=== PATIENT | female | born 1990 ===

== ENCOUNTER 2020-03-03 07:12 | Emergency (ER) | payer SELFPAY ==
[~2020-03-03] VITALS: Ht 165.1 cm; Wt 96.9 kg
--- NOTE | 2020-03-03 07:40 | ED GU-Female ---
General Chief Complaint: RECAPPER Stated Complaint: VAGINAL BLEEDING Nursing Triage Note: AMB TO ROOM [facility] TO ROOM TO COAL BAGGER WHO REPORTS SHE HAS HAD VAG BLEEDNG FOR 6 MONTHS TO CONCERND PASSED CLOTS WHEN SHE GOT UP Nursing Sepsis Screen: No Definite Risk Source: patient Exam Limitations: no limitations, language barrier History of Present Illness Date Seen by Provider: Mar 03, 2020 Time Seen by Provider: 07:22 Initial Comments Here with report of vaginal bleeding that has been irregular and more persistent over the last 6 months. Here today with her because she woke up this morning she noted several bigger clots after she got up. This concerned her and so she came for evaluation. Has some left lower quadrant abdominal pain. Otherwise denies other symptoms. Patient speaks limited Cameroonian but speaks Cameroonian well and is assisting. Timing/Duration: this morning Severity/Quality: mild, moderate Location: LLQ, vaginal Radiation: none Activities at Onset: sleep Sexual Talpa History: less than 2 months ago, single partner Associated Symptoms: abdominal pain; No dysuria, No fever/chills, No lower back pain, No nausea/vomiting Allergies and Home Medications Allergies Coded Allergies: No Known Drug Allergies (Unverified , 03/03/20) Home Medications No Active Prescriptions or Reported Meds Patient Home Medication List Home Medication List Reviewed: Yes Review of Systems Review of Systems Constitutional: no symptoms reported Respiratory: no symptoms reported Cardiovascular: no symptoms reported Gastrointestinal: see HPI Genitourinary: see HPI; denies dysuria, denies pain Skin: no symptoms reported Past Ovtpshv-Okzbyj-Dfzass Hx Past Med/Social Hx: Reviewed Nursing Past Med/Soc Hx Patient Social History Alcohol Use: Denies Use Recreational Drug Use: No Smoking Status: Never a Smoker Recent Foreign Travel: No Contact w/Someone Who Travel: No Recent Infectious Disease Expo: No Past Medical History Surgeries: Yes Section Respiratory: No Cardiac: No Neurological: No Genitourinary: No Gastrointestinal: No Musculoskeletal: No Endocrine: No HEENT: No Cancer: No Psychosocial: No Integumentary: No Family Medical History Reviewed Nursing Family Hx Physical Exam Vital Signs Vital Signs - First Documented 03/03/20 07:14 Temp 36.8 Pulse 89 Resp 18 B/P (MAP) 111/83 (92) Pulse Ox 100 O2 Delivery Room Air Capillary Refill : Less Than 3 Seconds Height, Weight, BMI Height: '" Weight: lbs. oz. kg; 35.00 BMI Method: General Appearance: WD/WN, no apparent distress HEENT: PERRL/EOMI, pharynx normal Neck: full range of motion, supple Cardiovascular: regular rate, rhythm, no murmur Respiratory: lungs clear, normal breath sounds Gastrointestinal: soft; No guarding, No rebound; tenderness (mild left lower quadrant) Back: normal inspection, no CVA tenderness, no vertebral tenderness Extremities: non-tender, normal inspection Neurologic/Psychiatric: no motor/sensory deficits, alert, oriented x 3 Skin: normal color, warm/dry Progress/Results/Core Measures Suspected Sepsis Recent Fever Within 48 Hours: No Infection Criteria Present: None New/Unexplained Altered Menta: No Sepsis Screen: No Definite Risk SIRS Temperature: Pulse: 89 Respiratory Rate: 18 Laboratory Tests 03/03/20 07:36: White Blood Count 14.6H Blood Pressure 111 /83 Mean: 92 Laboratory Tests 03/03/20 07:36: Creatinine 0.65, Platelet Count 647H, Total Bilirubin 0.2 Results/Orders Lab Results Laboratory Tests Test 03/03/20 07:36 03/03/20 08:30 Range/Units White Blood Count 14.6 H 4.3-11.0 10^3/uL Red Blood Count 4.29 L 4.35-5.85 10^6/uL Hemoglobin 7.9 L 11.5-16.0 G/DL Hematocrit 28 L 35-52 % Mean Corpuscular Volume 66 L 80-99 FL Mean Corpuscular Hemoglobin 18 L 25-34 PG Mean Corpuscular Hemoglobin Concent 28 L 32-36 G/DL Red Cell Distribution Width 19.5 H 10.0-14.5 % Platelet Count 647 H 130-400 10^3/uL Mean Platelet Volume 11.2 H 7.4-10.4 FL Neutrophils (%) (Auto) 51 42-75 % Lymphocytes (%) (Auto) 31 12-44 % Monocytes (%) (Auto) 7 0-12 % Eosinophils (%) (Auto) 11 H 0-10 % Basophils (%) (Auto) 1 0-10 % Neutrophils # (Auto) 7.4 1.8-7.8 X 10^3 Lymphocytes # (Auto) 4.5 H 1.0-4.0 X 10^3 Monocytes # (Auto) 1.0 0.0-1.0 X 10^3 Eosinophils # (Auto) 1.5 H 0.0-0.3 10^3/uL Basophils # (Auto) 0.1 0.0-0.1 10^3/uL Neutrophils % (Manual) 57 % Lymphocytes % (Manual) 31 % Monocytes % (Manual) 4 % Eosinophils % (Manual) 7 % Basophils % (Manual) 0 % Band Neutrophils 1 % Polychromasia SLIGHT Anisocytosis SLIGHT Microcytosis MODERATE Sodium Level 137 135-145 MMOL/L Potassium Level 4.1 3.6-5.0 MMOL/L Chloride Level 108 H 98-107 MMOL/L Carbon Dioxide Level 20 L 21-32 MMOL/L Anion Gap 9 5-14 MMOL/L Blood Urea Nitrogen 13 7-18 MG/DL Creatinine 0.65 0.60-1.30 MG/DL Estimat Glomerular Filtration Rate > 60 BUN/Creatinine Ratio 20 Glucose Level 103 70-105 MG/DL Calcium Level 8.2 L 8.5-10.1 MG/DL Corrected Calcium 8.5 8.5-10.1 MG/DL Total Bilirubin 0.2 0.1-1.0 MG/DL Aspartate Amino Transf (AST/SGOT) 15 5-34 U/L Alanine Aminotransferase (ALT/SGPT) 14 0-55 U/L Alkaline Phosphatase 84 40-136 U/L Total Protein 7.2 6.4-8.2 GM/DL Albumin 3.6 3.2-4.5 GM/DL Serum Test, Qualitative NEGATIVE NEGATIVE Urine Color YELLOW Urine Clarity SL CLOUDY Urine pH 6.0 5-9 Urine Specific [place] 1.020 1.016-1.022 Urine Protein NEGATIVE NEGATIVE Urine Glucose (UA) NEGATIVE NEGATIVE Urine Ketones NEGATIVE NEGATIVE Urine Nitrite NEGATIVE NEGATIVE Urine Bilirubin NEGATIVE NEGATIVE Urine Urobilinogen 0.2 < = 1.0 MG/DL Urine Leukocyte Esterase 3+ H NEGATIVE Urine RBC (Auto) 3+ H NEGATIVE Urine RBC 2-5 H /HPF Urine WBC >100 H /HPF Urine Squamous Epithelial Cells RARE /HPF Urine Crystals NONE /LPF Urine Bacteria MODERATE H /HPF Urine Casts NONE /LPF Urine Mucus NEGATIVE /LPF Urine Culture Indicated YES My Orders Orders - DIONE MORRISON MD Cbc With Automated Diff (03/03/20 07:31) Comprehensive Metabolic Panel (03/03/20 07:31) Hcg,Qualitative Serum (03/03/20 07:31) Ua Culture If Indicated (03/03/20 07:31) Manual Differential (03/03/20 07:36) Urine Culture (03/03/20 08:30) Us Non Ob Pelvis Comp/Transvag (03/03/20 07:31) Vital Signs/I&O 03/03/20 07:14 Temp 36.8 Pulse 89 Resp 18 B/P (MAP) 111/83 (92) Pulse Ox 100 O2 Delivery Room Air Capillary Refill : Less Than 3 Seconds Blood Pressure Mean: 92 Progress Note : Progress Note Seen and evaluated. Labs, UA and pelvic ultrasound ordered. Monitor patient. 0930: Ultrasound complete. Labs reviewed. I discussed all these findings with the patient and her . We will initiate treatment for urinary tract infection and they were strongly encouraged to initiate vitamin with iron and to seek local follow-up. They are familiar with [facility] and will seek follow-up there. Discharged home with return precautions. Patient and family verbalize understanding instructions and agreement with plan. Diagnostic Imaging Diagonstic Imaging: Ultrasound Plain Films/CT/US/NM/MRI: pelvis Comments NAME: SHAHRIAR FARLEY [facility] REC#: [id number] PT STATUS: REG ER : 1990 PHYSICIAN: DIONE MORRISON MD ADMIT DATE: 03/03/20/ER Draft Date of Exam:03/03/20 US NON OB PELVIS COMP/TRANSVAG EXAMINATION: Ultrasound pelvis. DATE: March 03, 2020. INDICATION: 29-year-old female, left-sided pelvic pain. COMPARISON: None. TECHNIQUE: A sonogram of the pelvis was performed utilizing transabdominal and endovaginal approaches assessing burns-scale appearance, spectral Doppler analysis, and color Doppler flow. FINDINGS: The uterus measures 8.1 x 3.4 x 4.9 cm. There is a probable nabothian cyst measuring 4 mm in size. The endometrium measures 0.7 cm in diameter. The right ovary measures 2.9 cm x 2.1 cm x 2.3 cm. The left ovary measures 2.6 cm x 1.9 cm x 2.1 cm. No adnexal lesion is seen. There is blood flow to both ovaries. No free pelvic fluid is demonstrated. IMPRESSION: 1. There is a 4 mm probable nabothian cyst. 2. Additional ultrasound evaluation of the female pelvis is unremarkable. Dictated on workstation # [id number] Dict: 03/03/20912 Trans: 03/03/20916 [id number] Interpreted by: SIOBHAN BIRMINGHAM MD Electronically signed by: Departure Impression Primary Impression: Urinary tract infection Qualified Codes: N30.01 - Acute cystitis with hematuria Additional Impression: Dysfunctional uterine bleeding Disposition: HOME, SELF-CARE Condition: Improved Departure-Patient Inst. Decision time for Depature: 09:31 Referrals: NO,LOCAL PHYSICIAN (PCP) Primary Care Physician SANDEEP OLIVER BETHANY N MD GAULT, HOLLY R MD [facility] [place] Patient Instructions: Anemia Caused by Low Iron, Adult (DC), Bleeding Between Periods, Heavy Periods, Urinary Tract Infection, Adult (DC) Add. Discharge Instructions: All discharge instructions reviewed with patient and/or family. Voiced understanding. Take antibiotics as directed. You should start a multivitamin with iron ( vitamin with iron will be fine). It is very important that you follow- up with your doctor or doctor of your choosing to continue to evaluate your abnormal periods and bleeding. Your hemoglobin is currently 7.9. Return for worse pain, increased bleeding, problems going to the bathroom, weakness, breathing problems or other concerns as needed. Scripts Cephalexin (Cephalexin) 500 Mg Tablet 500 MG PO BID, #14 TAB 0 Refills Prov: DIONE MORRISON MD 03/03/20 DIONE MORRISON MD Mar 03, 2020 07:40
[2020-03-03 07:44] LABS: BASOPHILS # (AUTO) 0.1 10^3/uL (0.0-0.1); BASOPHILS % (AUTO) 1 % (0-10); EOSINOPHILS # (AUTO) 1.5 10^3/uL (0.0-0.3); EOSINOPHILS % (AUTO) 11 % (0-10); HEMATOCRIT 28 % (35-52); HEMOGLOBIN 7.9 G/DL (11.5-16.0); LYMPHOCYTES # (AUTO) 4.5 X 10^3 (1.0-4.0); LYMPHOCYTES % (AUTO) 31 % (12-44); MEAN CORPUSCULAR HEMOGLOBIN 18 PG (25-34); MEAN CORPUSCULAR HGB CONC 28 G/DL (32-36); MEAN CORPUSCULAR VOLUME 66 FL (80-99); MEAN PLATELET VOLUME 11.2 FL (7.4-10.4); MONOCYTES % (AUTO) 7 % (0-12); NEUTROPHILS # (AUTO) 7.4 X 10^3 (1.8-7.8); NEUTROPHILS % (AUTO) 51 % (42-75); PLATELET COUNT 647 10^3/uL (130-400); RED CELL DISTRIBUTION WIDTH 19.5 % (10.0-14.5); WHITE BLOOD COUNT 14.6 10^3/uL (4.3-11.0)
[2020-03-03 07:56] LABS: ALBUMIN 3.6 GM/DL (3.2-4.5); CHLORIDE 108 MMOL/L (98-107); POTASSIUM 4.1 MMOL/L (3.6-5.0); SODIUM 137 MMOL/L (135-145)
[2020-03-03 07:57] LABS: CALCIUM 8.2 MG/DL (8.5-10.1)
[2020-03-03 07:58] LABS: GLUCOSE 103 MG/DL (70-105); TOTAL PROTEIN 7.2 GM/DL (6.4-8.2)
[2020-03-03 07:59] LABS: CARBON DIOXIDE 20 MMOL/L (21-32)
[2020-03-03 08:00] LABS: BILIRUBIN,TOTAL 0.2 MG/DL (0.1-1.0)
[2020-03-03 08:02] LABS: ALKALINE PHOSPHATASE 84 U/L (40-136); CREATININE SERUM 0.65 MG/DL (0.60-1.30); GFR ESTIMATED > 60
[2020-03-03 08:03] LABS: BUN/CREATININE RATIO 20
[2020-03-03 08:05] LABS: ALANINE AMINOTRANSFERASE 14 U/L (0-55)
[2020-03-03 08:13] LABS: BAND NEUTROPHILS 1 %; BASOPHILS % (MANUAL) 0 %; EOSINOPHILS % (MANUAL) 7 %; LYMPHOCYTES % (MANUAL) 31 %; MONOCYTES % (MANUAL) 4 %; NEUTROPHILS % (MANUAL) 57 %
--- NOTE | 2020-03-03 08:13 | NUR ---
TO SONO PER W/C
[2020-03-03 08:14] LABS: ANISOCYTOSIS SLIGHT; MICROCYTOSIS MODERATE; POLYCHROMASIA SLIGHT
[2020-03-03 08:52] LABS: BILIRUBIN,URINE NEGATIVE (NEGATIVE); CLARITY,URINE SL CLOUDY; COLOR,URINE YELLOW; GLUCOSE, URINE (UA) NEGATIVE (NEGATIVE); KETONES,URINE NEGATIVE (NEGATIVE); LEUKOCYTE ESTERASE ,URINE 3+ (NEGATIVE); NITRITE,URINE NEGATIVE (NEGATIVE); PROTEIN,URINE NEGATIVE (NEGATIVE)
[2020-03-03 09:00] LABS: BACTERIA,URINE MODERATE /HPF; SQUAMOUS EPITHELIAL CELL,UR RARE /HPF; WBC,URINE >100 /HPF
--- NOTE | 2020-03-03 09:17 | Diagnostic Imaging Report ---
EXAMINATION: Ultrasound pelvis. DATE: March 03, 2020. INDICATION: 29-year-old female, left-sided pelvic pain. COMPARISON: None. TECHNIQUE: A sonogram of the pelvis was performed utilizing transabdominal and endovaginal approaches assessing burns-scale appearance, spectral Doppler analysis, and color Doppler flow. FINDINGS: The uterus measures 8.1 x 3.4 x 4.9 cm. There is a probable nabothian cyst measuring 4 mm in size. The endometrium measures 0.7 cm in diameter. The right ovary measures 2.9 cm x 2.1 cm x 2.3 cm. The left ovary measures 2.6 cm x 1.9 cm x 2.1 cm. No adnexal lesion is seen. There is blood flow to both ovaries. No free pelvic fluid is demonstrated. IMPRESSION: 1. There is a 4 mm probable nabothian cyst. 2. Additional ultrasound evaluation of the female pelvis is unremarkable. Dictated by: Dictated on workstation # [id number]
--- NOTE | 2020-03-03 09:23 | NUR ---
TO ROOM TO DISCUSS LAB AND SONO RESULTS WITH PATIENT.
[2020-03-03] MEDS ORDERED: CEPH500T PO (09:34)
[2020-03-03 09:39] VITALS: BP 119/69
--- OUTSIDE RECORDS SUMMARY | 2020-03-03 16:21 | XMS REPORT | Continuity of Care Document ---
Author Organization Unknown Address Unknown Phone Unavailable Allergies There is no data. Medications There is no data. Problems There is no data. Procedures There is no data. Results There is no data. Encounters ACCT No. Visit Date/Time Discharge Status Pt. Type Provider Facility Loc./Unit Complaint [id number] 03/03/2020 07:14:00 020 09:43:00 DIS Emergency TAMIKO MENJIVAR, DIONE Baugh [facility] ER VAGINAL BLEEDING
== END 2020-03-03 09:43 | disposition home or self-care (01) ==
LOC: ER 07:14
DX: N30.01 Acute cystitis with hematuria (principal); N93.8 Other specified abnormal uterine and vaginal bleeding
CPT/HCPCS: 36415; 76830; 76856; 80053; 81000; 84703; 85007; 85027; 87077; 87088

== ENCOUNTER 2020-05-16 20:18 | Inpatient (IN) | payer SELFPAY ==
[~2020-05-16] VITALS: Ht 150 cm; Wt 86.2 kg
[~2020-05-16 20:18] MED LIST: CEPH500T PO
--- OUTSIDE RECORDS SUMMARY | 2020-05-16 20:24 | XMS REPORT | Continuity of Care Document ---
Author Organization Unknown Address Unknown Phone Unavailable Allergies Active Description Code Type Severity Reaction Onset Reported/Identified Relationship to Patient Clinical Status Yes No Known Drug Allergies [id number] Drug Allergy Unknown N/A 03/03/2020 Medications There is no data. Problems Date Dx Coded Attending Type Code Diagnosis Diagnosed By 03/09/2020 DIONE MORRISON MD Ot N30.01 ACUTE CYSTITIS WITH HEMATURIA 03/09/2020 DIONE MORRISON MD Ot N93.8 OTHER SPECIFIED ABNORMAL UTERINE AND VAG 03/09/2020 DIONE MORRISON MD Ot N93.9 ABNORMAL UTERINE AND VAGINAL BLEEDING, U Procedures There is no data. Results Test Result Range Complete blood count (CBC) with automate d white blood cell (WBC) differential - 03/03/20 07:36 Blood leukocytes automated count (number/volume) 14.6 10*3/uL 4.3-11.0 Blood erythrocytes automated count (number/volume) 4.29 10*6/uL 4.35-5.85 Venous blood hemoglobin measurement (mass/volume) 7.9 g/dL 11.5-16.0 Blood hematocrit (volume fraction) 28 % 35-52 Automated erythrocyte mean corpuscular volume 66 [ foz_us] 80-99 Automated erythrocyte mean corpuscular h emoglobin (mass per erythrocyte) 18 pg 25-34 Automated erythrocyte mean corpuscular h emoglobin concentration measurement (mass/volume) 28 g/dL 32-36 Automated erythrocyte distribution width ratio 19. 5 % 10.0- 14.5 Automated blood platelet count (count/volume) 647 10*3/uL 130-400 Automated blood platelet mean volume measurement 11.2 [foz_us] 7.4-10.4 Automated blood neutrophils/100 leukocytes 51 % 42-75 Automated blood lymphocytes/100 leukocytes 31 % 12-44 Blood monocytes/100 leukocytes 7 % 0-12 Automated blood eosinophils/100 leukocytes 11 % 0-10 Automated blood basophils/100 leukocytes 1 % 0-10 Blood neutrophils automated count (number/volume) 7.4 10*3 1.8-7.8 Blood lymphocytes automated count (number/volume) 4.5 10*3 1.0-4.0 Blood monocytes automated count (number/volume) 1. 0 10*3 0.0-1.0 Automated eosinophil count 1.5 10*3/uL 0 .0-0.3 Automated blood basophil count (count/volume) 0.1 10*3/uL 0.0-0.1 Comprehensive metabolic panel - 03/03/20 07:36 Serum or plasma sodium measurement (moles/volume) 137 mmol/L 135-145 Serum or plasma potassium measurement (moles/volume) 4.1 mmol/L 3.6-5.0 Serum or plasma chloride measurement (moles/volume) 108 mmol/L 98-107 Carbon dioxide 20 mmol/L 21-32 Serum or plasma anion gap determination (moles/volume) 9 mmol/L 5-14 Serum or plasma urea nitrogen measurement (mass/volume ) 13 mg/dL 7-18 Serum or plasma creatinine measurement (mass/volume) 0.65 mg/dL 0.60-1.30 Serum or plasma urea nitrogen/creatinine mass ratio 20 NRG Serum or plasma creatinine measurement w ith calculation of estimated glomerular filtration rate > NRG Serum or plasma glucose measurement (mass/volume) 103 mg/dL 70-105 Serum or plasma calcium measurement (mass/volume) 8.2 mg/dL 8.5-10.1 Serum or plasma total bilirubin measurement (mass/volu me) 0.2 mg/dL 0.1-1.0 Serum or plasma alkaline phosphatase juancarlos surement (enzymatic activity/volume) 84 U/L 40-136 Serum or plasma aspartate aminotransfera se measurement (enzymatic activity/volume) 15 U/L 5-34 Serum or plasma alanine aminotransferase measurement (enzymatic activity/volume) 14 U/L 0-55 Serum or plasma protein measurement (mass/volume) 7.2 g/dL 6.4-8.2 Serum or plasma albumin measurement (mass/volume) 3.6 g/dL 3.2-4.5 CALCIUM CORRECTED 8.5 mg/dL 8.5-10.1 Serum or plasma choriogonadotropin (preg maura test) detection - 03/03/20 07:36 Serum or plasma choriogonadotropin ( test) de tection NEGATIVE NEGATIVE Manual absolute plasma cell count - 02/12 12/02 07:36 Blood monocytes/100 leukocytes 4 % NRG Manual blood segmented neutrophils/100 leukocytes 57 % NRG Blood band neutrophils/100 leukocytes 1 % NRG Manual blood lymphocytes/100 leukocytes 31 % NRG Manual eosinophils/100 leukocytes in nose 7 % NRG Manual blood basophils/100 leukocytes 0 % NRG Blood polychromasia detection by light microscopy SLIGHT NRG Blood anisocytosis detection by light microscopy S LIGHT NRG Blood microcytes detection by light microscopy MOD ERATE NRG Complete urinalysis with reflex to cultu re - 03/03/20 08:30 Urine color determination YELLOW NRG Urine clarity determination SL CLOUDY N RG Urine pH measurement by test strip 6.0 5-9 Specific gravity of urine by test strip 1.020 1.016-1.022 Urine protein assay by test strip, semi-quantitative NEGATIVE NEGATIVE Urine glucose detection by automated test strip NE GATIVE NEGATIVE Erythrocytes detection in urine sediment by light micr oscopy 3+ NEGATIVE Urine ketones detection by automated test strip NE GATIVE NEGATIVE Urine nitrite detection by test strip NEGATIVE NEGATIVE Urine total bilirubin detection by test strip NEGA TIVE NEGATIVE Urine urobilinogen measurement by automated test strip (mass/volume) 0.2 mg/dL < = 1.0 Urine leukocyte esterase detection by dipstick 3+ NEGATIVE Automated urine sediment erythrocyte cou nt by microscopy (number/high power field) [HPF] NRG Automated urine sediment leukocyte count by microscopy (number/high power field) > [HPF] NRG Bacteria detection in urine sediment by light microsco py MODERATE NRG Squamous epithelial cells detection in u rine sediment by light microscopy RARE NRG Crystals detection in urine sediment by light microsco py NONE NRG Casts detection in urine sediment by light microscopy NONE NRG Mucus detection in urine sediment by light microscopy NEGATIVE NRG Complete urinalysis with reflex to culture YES NRG Bacterial urine culture - 03/03/20 08:30 Bacterial urine culture [id number] NRG COLONY COUNT >100,000/ML NRG SUSCEPTIBILITY (MORE THAN ONE COLONY TYPE) NRG MRSA SCREEN SUSCEPTIBILITY REPORTED 03-06-20 NRG ID CONFIRMATION RML REPORTED ID 03/04/20 15:05 NRG Dirithromycin susceptibility test by dis k diffusion - 03/03/20 08:30 Gentamicin susceptibility test by minimum inhibitory c oncentration <= NRG Trimethoprim/sulfamethoxazole susceptibi lity test by minimum inhibitoryconcentration > NRG Levofloxacin susceptibility test by minimum inhibitory concentration <= NRG Ampicillin susceptibility test by minimum inhibitory c oncentration > NRG Cefazolin susceptibility test by minimum inhibitory co ncentration <= NRG Ceftriaxone susceptibility test by minimum inhibitory concentration <= NRG Ciprofloxacin susceptibility test by minimum inhibitor y concentration <= NRG Meropenem susceptibility test by minimum inhibitory co ncentration <= NRG Nitrofurantoin susceptibility test by mi nimum inhibitory concentration <= NRG Amoxicillin and clavulanate potassium susc ANGE <= NRG Encounters ACCT No. Visit Date/Time Discharge Status Pt. Type Provider Facility Loc./Unit Complaint [id number] 03/03/2020 07:14:00 020 09:43:00 DIS Outpatient TAMIKO MENJIVAR, DIONE Brice [facility] ER VAGINAL BLEPHOEBE G
[2020-05-16] MEDS ORDERED: NS IV 1000 ML 1,000 ML ONE (20:31)
[2020-05-16] MEDS ORDERED: ONDANSETRON 4 MG/2 ML (SDV) Z0FRAN ONE (20:31)
--- NOTE | 2020-05-16 20:42 | ED General ---
General Stated Complaint: COVID POS Source of Information: Patient Exam Limitations: No Limitations History of Present Illness Date Seen by Provider: May 16, 2020 Time Seen by Provider: 20:38 Initial Comments Zic-Addklnw-ciojcnma female presents to ER with reports of fatigue and dyspnea on exertion for about 15 days. She's had heavy vaginal bleeding for about 2 months, she has been prescribed oral contraceptive pills but has not noticed any reduction in vaginal bleeding. Today has been the heaviest and she has used about 10 pads today. She also has nausea. she tested positive for COVID-19 one week ago at [facility]. She had a pelvic ultrasound done here in February showing a 4 mm nabothian cyst but otherwise unremarkable pelvic ultrasound. Hemoglobin at that time was 7.9. Timing/Duration: Constant, Getting Worse Severity: Moderate Associated Systoms: Shortness of Air Allergies and Home Medications Allergies Coded Allergies: No Known Drug Allergies (Unverified , 03/03/20) Home Medications Cephalexin 500 Mg Tablet, 500 MG PO BID Prescribed by: DIONE MORRISON on 03/03/20 0954 Patient Home Medication List Home Medication List Reviewed: Yes Review of Systems Review of Systems Constitutional: see HPI; No chills, No fever EENTM: see HPI Respiratory: see HPI; No cough; dyspnea on exertion Cardiovascular: no symptoms reported Genitourinary: no symptoms reported Musculoskeletal: no symptoms reported Skin: no symptoms reported Past Bislmcs-Rdxber-Qrnsog Hx Past Medical History Surgeries: Yes Section Respiratory: No Cardiac: No Neurological: No Genitourinary: No Gastrointestinal: No Musculoskeletal: No Endocrine: No HEENT: No Cancer: No Psychosocial: No Integumentary: No Physical Exam Vital Signs Vital Signs - First Documented 05/16/20 20:18 Temp 37.6 Pulse 138 Resp 22 B/P (MAP) 139/78 (98) Pulse Ox 100 O2 Delivery Room Air Capillary Refill : Height, Weight, BMI Height: '" Weight: lbs. oz. kg; 35.00 BMI Method: General Appearance: WD/WN, Anxious, Obese Eyes: Bilateral Eye Normal Inspection, Bilateral Eye PERRL Neck: Full Range of Motion, Normal Inspection Respiratory: No Accessory Muscle Use, No Respiratory Distress Cardiovascular: Normal Peripheral Pulses, Tachycardia Gastrointestinal: Normal Bowel Sounds, Non Tender, Soft Extremity: Normal Capillary Refill, Normal Inspection Neurologic/Psychiatric: Alert, Oriented x3 Skin: Normal Color, Warm/Dry Progress/Results/Core Measures Suspected Sepsis SIRS Temperature: Pulse: Respiratory Rate: Laboratory Tests 05/16/20 20:30: White Blood Count 18.1H Blood Pressure / Mean: Laboratory Tests 05/16/20 20:30: Creatinine 0.73, INR Comment 1.0, Platelet Count 806H, Total Bilirubin 0.2 Results/Orders Lab Results Laboratory Tests Test 05/16/20 20:30 05/16/20 21:45 Range/Units White Blood Count 18.1 H 4.3-11.0 10^3/uL Red Blood Count 2.83 L 4.35-5.85 10^6/uL Hemoglobin 4.7 *L 11.5-16.0 G/DL Hematocrit 19 *L 35-52 % Mean Corpuscular Volume 67 L 80-99 FL Mean Corpuscular Hemoglobin 17 L 25-34 PG Mean Corpuscular Hemoglobin Concent 25 L 32-36 G/DL Red Cell Distribution Width 20.5 H 10.0-14.5 % Platelet Count 806 H 130-400 10^3/uL Mean Platelet Volume 10.7 H 7.4-10.4 FL Neutrophils (%) (Auto) 68 42-75 % Lymphocytes (%) (Auto) 25 12-44 % Monocytes (%) (Auto) 4 0-12 % Eosinophils (%) (Auto) 3 0-10 % Basophils (%) (Auto) 0 0-10 % Neutrophils # (Auto) 12.3 H 1.8-7.8 X 10^3 Lymphocytes # (Auto) 4.5 H 1.0-4.0 X 10^3 Monocytes # (Auto) 0.8 0.0-1.0 X 10^3 Eosinophils # (Auto) 0.5 H 0.0-0.3 10^3/uL Basophils # (Auto) 0.1 0.0-0.1 10^3/uL Neutrophils % (Manual) 69 % Lymphocytes % (Manual) 18 % Monocytes % (Manual) 2 % Eosinophils % (Manual) 4 % Basophils % (Manual) 1 % Nucleated Red Blood Cells 4 Atypical Lymphocytes 6 % Smudge Cells SLIGHT Hypochromasia MODERATE Basophilic Stippling SLIGHT Anisocytosis MODERATE Microcytosis SLIGHT Prothrombin Time 13.2 12.2-14.7 SEC INR Comment 1.0 0.8-1.4 Activated Partial Thromboplast Time 28 24-35 SEC D-Dimer 1.85 H 0.00-0.49 UG/ML Sodium Level 137 135-145 MMOL/L Potassium Level 3.3 L 3.6-5.0 MMOL/L Chloride Level 107 98-107 MMOL/L Carbon Dioxide Level 19 L 21-32 MMOL/L Anion Gap 11 5-14 MMOL/L Blood Urea Nitrogen 6 L 7-18 MG/DL Creatinine 0.73 0.60-1.30 MG/DL Estimat Glomerular Filtration Rate > 60 BUN/Creatinine Ratio 8 Glucose Level 137 H 70-105 MG/DL Calcium Level 8.0 L 8.5-10.1 MG/DL Corrected Calcium 8.5 8.5-10.1 MG/DL Total Bilirubin 0.2 0.1-1.0 MG/DL Aspartate Amino Transf (AST/SGOT) 10 5-34 U/L Alanine Aminotransferase (ALT/SGPT) 9 0-55 U/L Alkaline Phosphatase 83 40-136 U/L C-Reactive Protein High Sensitivity 4.89 H 0.00-0.50 MG/DL Total Protein 7.2 6.4-8.2 GM/DL Albumin 3.4 3.2-4.5 GM/DL Serum Test, Qualitative NEGATIVE NEGATIVE My Orders Orders - TREASURE ESPINO APRN Ondansetron Injection (Zofran Injectio (05/16/20 20:45) Ns Iv 1000 Ml (Sodium Chloride 0.9%) (05/16/20 20:45) Cbc With Automated Diff (05/16/20 20:32) Comprehensive Metabolic Panel (05/16/20 20:32) Ua Culture If Indicated (05/16/20 20:32) Ed Iv/Invasive Line Start (05/16/20 20:32) Hcg,Qualitative Serum (05/16/20 20:32) Fibrin Degradation Products (05/16/20 20:32) Hs C Reactive Protein (05/16/20 20:32) Alprazolam Tablet (Xanax Tablet) (05/16/20 20:45) Iohexol Injection (Omnipaque 350 Mg/Ml 1 (05/16/20 20:45) Received Contrast (Hold Metformin- Contr (05/16/20 20:45) Ns (Ivpb) (Sodium Chloride 0.9% Ivpb Bag (05/16/20 20:45) Manual Differential (05/16/20 20:30) Red Cells Leukocytes Reduced (05/16/20 20:48) Type And Screen (05/16/20 20:48) Ct Angio Chst/Abd/Pelv W (05/16/20 20:32) Protime With Inr (05/16/20 20:30) Partial Thromboplastin Time (05/16/20 20:30) Medications Given in ED Current Medications Medications Dose Ordered Sig/Arslan Route Start Time Stop Time Status Last Admin Dose Admin Alprazolam 0.25 mg ONCE ONCE PO 05/16/20 20:45 05/16/20 20:46 DC 05/16/20 20:40 0.25 MG Iohexol 75 ml ONCE ONCE IV 05/16/20 20:45 05/16/20 21:00 DC 05/16/20 21:10 75 ML Ondansetron HCl 8 mg ONCE ONCE IVP 05/16/20 20:45 05/16/20 20:46 DC 05/16/20 20:30 8 MG Sodium Chloride 100 ml ONCE ONCE IV 05/16/20 20:45 05/16/20 21:00 DC 05/16/20 21:11 100 ML Vital Signs/I&O 05/16/20 20:18 Temp 37.6 Pulse 138 Resp 22 B/P (MAP) 139/78 (98) Pulse Ox 100 O2 Delivery Room Air Capillary Refill : Diagnostic Imaging Diagonstic Imaging: CT Comments NAME: SHAHRIAR FARLEY [facility] REC#: [id number] PT STATUS: REG ER : 1990 PHYSICIAN: TREASURE ESPINO [employer] ADMIT DATE: 05/16/20/ER Signed Date of Exam:05/16/20 CT ANGIO CHST/ABD/PELV W PROCEDURE: CT angiography of the chest with contrast and CT abdomen and pelvis with contrast. TECHNIQUE: Multiple contiguous axial images were obtained through the chest, abdomen and pelvis after administration of intravenous contrast. 3D MIP reconstructed CT angiography acquisitions of the aorta were then performed. Auto Exposure Controls were utilized during the CT exam to meet ALARA standards for radiation dose reduction. DATE: May 16, 2020. COMPARISON: Pelvic ultrasound March 03, 2020. INDICATION: 29-year-old female, shortness of breath. Positive for Covid 19. FINDINGS: There is respiratory motion artifact present. There is no identified pulmonary nodule. There is no lung mass. There is no focal airspace consolidation. There is no pneumothorax. There is no pleural effusion. The central airways are patent. There is no identified central pulmonary embolus. There is limitation for evaluation of the more peripheral pulmonary emboli given the timing of the contrast bolus. The main pulmonary artery diameter is within normal limits. The heart is not enlarged. There is no pericardial effusion. There is no identified abnormally enlarged mediastinal, hilar, or axillary lymph node which meets CT size criteria for adenopathy. The liver is normal in size and contour. There is no identified liver lesion. The gallbladder is unremarkable. There is no biliary ductal dilation. The main pancreatic duct is not abnormally dilated. Unremarkable appearance of the pancreatic parenchyma. The spleen is normal in size. The adrenal glands are unremarkable. There is a staghorn calculus in the left kidney with areas of left renal scarring. Unremarkable appearance of the right renal parenchyma. The urinary collecting systems are not distended. There is no identified ureteral stone. Urinary bladder is unremarkable in appearance. There is mild diverticulosis without evidence of acute diverticulitis. There is no evidence of acute appendicitis. There is no free intraperitoneal air. There is no drainable fluid collection. There is no free pelvic fluid. There is no identified abnormally enlarged lymph node in the abdomen or pelvis which meets CT size criteria for adenopathy. The imaged portions of the right and left thighs are unremarkable in appearance. There is no identified acute bony abnormality. IMPRESSION: CT chest, abdomen and pelvis: 1. No identified acute cardiopulmonary abnormality. 2. Staghorn left renal calculus with areas of left renal cortical scarring. 3. No identified ureteral stone or hydronephrosis. 4. No acute abnormality in the abdomen or pelvis. Dictated by: Dictated on workstation # [id number] Dict: 05/16/202119 Trans: 05/16/202136 [facility] [id number] Interpreted by: SIOBHAN BIRMINGHAM MD Electronically signed by: SIOBHAN BIRMINGHAM MD 05/16/202136 Departure Communication (Admissions) Time/Spoke to Admitting Phy: 21:[address] Barger who recommends Depo-Provera 150 mg intramuscular then medroxyprogesterone acetate 10 mg daily. We will consult hospitalist because of the Covid 19 positive status and admission for dyspnea on exertion. medroxyprogesterone acetate for IM injection is unavailable and cannot be ordered in eMAR. Will give 10mg PO now. etiology for the dyspnea on exertion include COVID-19, anemia from vaginal bleeding, pulmonary embolism from COVID-19 or estrogen use. We will do a CT Angio chest, give some fluids, Zofran. Her oxygen saturation is 100% on room air, her respiratory rate is a bit increased at 22 after walking to the bed. Blood pressure is adequate, heart rate is elevated at 135 sinus. Impression Primary Impression: Symptomatic anemia Additional Impressions: Episode of heavy vaginal bleeding Covid 19 positive Disposition: ADMITTED INPATIENT Condition: Stable Admissions Decision to Admit Reason: Admit from ER (General) Decision to Admit/Date: May 16, 2020 Time/Decision to Admit Time: 21:54 Departure-Patient Inst. Referrals: NO,LOCAL PHYSICIAN (PCP/Family) Primary Care Physician TREASURE ESPINO APRN May 16, 2020 20:42
[2020-05-16 20:45] LABS: BASOPHILS # (AUTO) 0.1 10^3/uL (0.0-0.1); BASOPHILS % (AUTO) 0 % (0-10); EOSINOPHILS # (AUTO) 0.5 10^3/uL (0.0-0.3); EOSINOPHILS % (AUTO) 3 % (0-10); LYMPHOCYTES # (AUTO) 4.5 X 10^3 (1.0-4.0); LYMPHOCYTES % (AUTO) 25 % (12-44); MEAN CORPUSCULAR HEMOGLOBIN 17 PG (25-34); MEAN CORPUSCULAR HGB CONC 25 G/DL (32-36); MEAN CORPUSCULAR VOLUME 67 FL (80-99); MEAN PLATELET VOLUME 10.7 FL (7.4-10.4); MONOCYTES # (AUTO) 0.8 X 10^3 (0.0-1.0); MONOCYTES % (AUTO) 4 % (0-12); NEUTROPHILS # (AUTO) 12.3 X 10^3 (1.8-7.8); NEUTROPHILS % (AUTO) 68 % (42-75); PLATELET COUNT 806 10^3/uL (130-400); RED CELL DISTRIBUTION WIDTH 20.5 % (10.0-14.5); WHITE BLOOD COUNT 18.1 10^3/uL (4.3-11.0)
[2020-05-16] MEDS ORDERED: ONDANSETRON 4 MG/2 ML (SDV) Z0FRAN IVP ONE (20:45)
[2020-05-16] MEDS ORDERED: NS 100 ML (IVPB) BAG IV ONE (20:45)
[2020-05-16] MEDS ORDERED: NS IV 1000 ML 1,000 ML IV SCH ×3 (20:45→22:30)
[2020-05-16] MEDS ORDERED: HOLD METFORMIN - RECEIVED CONTRAST 20 ML VIAL IV SCH (20:45)
[2020-05-16] MEDS ORDERED: IOHEXOL 350 MG/ML 100 ML (OMNIPAQUE 350) VIAL IV ONE (20:45)
[2020-05-16] MEDS ORDERED: ALPRAZolam 0.25 MG (XANAX) TAB PO ONE (20:45)
[2020-05-16 20:47] LABS: HEMOGLOBIN 4.7 G/DL (11.5-16.0)
[2020-05-16 20:48] LABS: HEMATOCRIT 19 % (35-52)
--- NOTE | 2020-05-16 20:48 | NUR ---
CRITICAL LAB RESULTS REPORTED BY LAB; HGB 4.7, HCT 19. PRIMARY RN AND ERP NOTIFIED AT THIS TIME. NEW ORDERS TO FOLLOW.
[2020-05-16 20:53] LABS: ALBUMIN 3.4 GM/DL (3.2-4.5); CHLORIDE 107 MMOL/L (98-107); POTASSIUM 3.3 MMOL/L (3.6-5.0); SODIUM 137 MMOL/L (135-145)
[2020-05-16 20:55] LABS: GLUCOSE 137 MG/DL (70-105); TOTAL PROTEIN 7.2 GM/DL (6.4-8.2)
[2020-05-16 20:56] LABS: CARBON DIOXIDE 19 MMOL/L (21-32)
[2020-05-16 20:57] LABS: BILIRUBIN,TOTAL 0.2 MG/DL (0.1-1.0); FIBRIN DEGRADATION PRODUCTS 1.85 UG/ML (0.00-0.49)
[2020-05-16 20:59] LABS: ALKALINE PHOSPHATASE 83 U/L (40-136); CREATININE SERUM 0.73 MG/DL (0.60-1.30); GFR ESTIMATED > 60
[2020-05-16 21:00] LABS: BUN/CREATININE RATIO 8
[2020-05-16 21:02] LABS: ALANINE AMINOTRANSFERASE 9 U/L (0-55)
[2020-05-16 21:22] LABS: PROTHROMBIN TIME PATIENT 13.2 SEC (12.2-14.7)
--- NOTE | 2020-05-16 21:34 | Diagnostic Imaging Report ---
PROCEDURE: CT angiography of the chest with contrast and CT abdomen and pelvis with contrast. TECHNIQUE: Multiple contiguous axial images were obtained through the chest, abdomen and pelvis after administration of intravenous contrast. 3D MIP reconstructed CT angiography acquisitions of the aorta were then performed. Auto Exposure Controls were utilized during the CT exam to meet ALARA standards for radiation dose reduction. DATE: May 16, 2020. COMPARISON: Pelvic ultrasound March 03, 2020. INDICATION: 29-year-old female, shortness of breath. Positive for Covid 19. FINDINGS: There is respiratory motion artifact present. There is no identified pulmonary nodule. There is no lung mass. There is no focal airspace consolidation. There is no pneumothorax. There is no pleural effusion. The central airways are patent. There is no identified central pulmonary embolus. There is limitation for evaluation of the more peripheral pulmonary emboli given the timing of the contrast bolus. The main pulmonary artery diameter is within normal limits. The heart is not enlarged. There is no pericardial effusion. There is no identified abnormally enlarged mediastinal, hilar, or axillary lymph node which meets CT size criteria for adenopathy. The liver is normal in size and contour. There is no identified liver lesion. The gallbladder is unremarkable. There is no biliary ductal dilation. The main pancreatic duct is not abnormally dilated. Unremarkable appearance of the pancreatic parenchyma. The spleen is normal in size. The adrenal glands are unremarkable. There is a staghorn calculus in the left kidney with areas of left renal scarring. Unremarkable appearance of the right renal parenchyma. The urinary collecting systems are not distended. There is no identified ureteral stone. Urinary bladder is unremarkable in appearance. There is mild diverticulosis without evidence of acute diverticulitis. There is no evidence of acute appendicitis. There is no free intraperitoneal air. There is no drainable fluid collection. There is no free pelvic fluid. There is no identified abnormally enlarged lymph node in the abdomen or pelvis which meets CT size criteria for adenopathy. The imaged portions of the right and left thighs are unremarkable in appearance. There is no identified acute bony abnormality. IMPRESSION: CT chest, abdomen and pelvis: 1. No identified acute cardiopulmonary abnormality. 2. Staghorn left renal calculus with areas of left renal cortical scarring. 3. No identified ureteral stone or hydronephrosis. 4. No acute abnormality in the abdomen or pelvis. Dictated by: Dictated on workstation # [id number]
[2020-05-16 21:36] LABS: ANISOCYTOSIS MODERATE; ATYPICAL LYMPHOCYTES 6 %; BASOPHILS % (MANUAL) 1 %; EOSINOPHILS % (MANUAL) 4 %; HYPOCHROMASIA MODERATE; LYMPHOCYTES % (MANUAL) 18 %; MICROCYTOSIS SLIGHT; MONOCYTES % (MANUAL) 2 %; NEUTROPHILS % (MANUAL) 69 %; NUCLEATED RED BLOOD CELLS 4; SMUDGE CELLS SLIGHT
[2020-05-16 21:55] LABS: BILIRUBIN,URINE NEGATIVE (NEGATIVE); CLARITY,URINE SL CLOUDY; COLOR,URINE ORANGE; GLUCOSE, URINE (UA) NEGATIVE (NEGATIVE); KETONES,URINE NEGATIVE (NEGATIVE); LEUKOCYTE ESTERASE ,URINE 3+ (NEGATIVE); NITRITE,URINE NEGATIVE (NEGATIVE); PH,URINE 7.5 (5-9); PROTEIN,URINE TRACE (NEGATIVE)
[2020-05-16] MEDS ORDERED: medroxyPROGESTERone 10 MG (PROVERA) TAB PO ONE (22:00)
--- NOTE | 2020-05-16 22:00 | NUR ---
UNABLE TO VERIFY BLOOD PRODUCT D/T INABILITY TO SCAN IN COVID UNIT. LIBRARY CIRCULATION TECHNICIAN NOTIFIED. LIBRARY CIRCULATION TECHNICIAN REPORTS HE WILL SEND ADMITTING NURSE TO VERIFY BLOOD PRIOR TO INITIATING TRANSFUSION.
--- OUTSIDE RECORDS SUMMARY | 2020-05-16 22:05 | XMS REPORT | Continuity of Care Document ---
Author Organization Unknown Address Unknown Phone Unavailable Allergies Active Description Code Type Severity Reaction Onset Reported/Identified Relationship to Patient Clinical Status Yes No Known Drug Allergies [id number] Drug Allergy Unknown N/A 03/03/2020 Medications There [...] culture - 03/03/20 08:30 Bacterial urine culture [id number] NRG COLONY COUNT >100,000/ML NRG SUSCEPTIBILITY (MORE [...] Status Pt. Type Provider Facility Loc./Unit Complaint [id number] 03/03/2020 07:14:00 020 09:43:00 DIS Outpatient TAMIKO MENJIVAR, DIONE Brice [facility] ER VAGINAL BLEPHOEBE G
[2020-05-16 22:12] LABS: BACTERIA,URINE TRACE /HPF; RBC,URINE TNTC /HPF
[2020-05-16 22:15] VITALS: BP 99/58
[2020-05-16 22:30] VITALS: BP 105/54
[2020-05-16] MEDS ORDERED: ONDANSETRON 4 MG/2 ML (SDV) Z0FRAN IV PRN (22:30)
[2020-05-16] MEDS ORDERED: PROMETHAZINE INJ 25 MG/ML (PHENERGAN) AMP IV PRN (22:30)
[2020-05-16] MEDS ORDERED: KETOROLAC 15 MG/ML VIAL IV PRN (22:30)
--- NOTE | 2020-05-16 22:30 | NUR ---
SHAHRIAR FARLEY admitted to room 431-1, with an admitting diagnosis of VAGINAL BLEEDING, COVID 19, on 05/16/20 from COVID UNIT ER via , accompanied by STAFF.SHAHRIAR FARLEY introduced to surroundings, call light, bed controls, phone, TV, temperature control, lights, meal times, smoking policy, visitor policy, side rail policy, bathrooms and showers. Patient Rights given to patient in the handbook. SHAHRIAR FARLEY verbalizes understanding that [facility] is not responsible for the loss or damage to any personal effects or valuables that are kept in the patients posession during their hospitalization.
[2020-05-17] VITALS (11 sets, daily range): BP systolic 100–126; BP diastolic 52–75
--- NOTE | 2020-05-17 00:18 | NUR ---
PT CONTRAINDICATED FOR DVT MEDICATION PRO DUE TO EXCESSIVE BLEEDING AND LOW HGB
[2020-05-17 05:48] LABS: ALBUMIN 3.1 GM/DL (3.2-4.5); CHLORIDE 108 MMOL/L (98-107); POTASSIUM 3.7 MMOL/L (3.6-5.0); SODIUM 137 MMOL/L (135-145)
[2020-05-17 05:49] LABS: CALCIUM 7.8 MG/DL (8.5-10.1)
[2020-05-17 05:50] LABS: GLUCOSE 95 MG/DL (70-105); TOTAL PROTEIN 6.4 GM/DL (6.4-8.2)
[2020-05-17 05:51] LABS: CARBON DIOXIDE 18 MMOL/L (21-32)
[2020-05-17 05:52] LABS: BILIRUBIN,TOTAL 0.6 MG/DL (0.1-1.0)
[2020-05-17 05:54] LABS: ALKALINE PHOSPHATASE 70 U/L (40-136); CREATININE SERUM 0.66 MG/DL (0.60-1.30); GFR ESTIMATED > 60
[2020-05-17 05:55] LABS: BUN/CREATININE RATIO 8
[2020-05-17 05:57] LABS: ALANINE AMINOTRANSFERASE 6 U/L (0-55)
--- NOTE | 2020-05-17 06:21 | NUR ---
DR PERKINS NOTIFIED OF PTS HGB 7.4 AFTER 2 UNITS OF BLOOD. HE ORDERED [address] MIMS NOTIFIED OF PTS ADMIT AND STATUS WELL.
[2020-05-17 06:49] LABS: BASOPHILS % (AUTO) 0 % (0-10); EOSINOPHILS % (AUTO) 3 % (0-10); HEMATOCRIT 25 % (35-52); HEMOGLOBIN 7.4 G/DL (11.5-16.0); LYMPHOCYTES # (AUTO) 4.5 X 10^3 (1.0-4.0); LYMPHOCYTES % (AUTO) 29 % (12-44); MEAN CORPUSCULAR HEMOGLOBIN 21 PG (25-34); MEAN CORPUSCULAR HGB CONC 29 G/DL (32-36); MEAN CORPUSCULAR VOLUME 72 FL (80-99); MEAN PLATELET VOLUME 10.5 FL (7.4-10.4); MONOCYTES % (AUTO) 5 % (0-12); NEUTROPHILS # (AUTO) 9.8 X 10^3 (1.8-7.8); NEUTROPHILS % (AUTO) 63 % (42-75); PLATELET COUNT 650 10^3/uL (130-400); RED CELL DISTRIBUTION WIDTH 22.3 % (10.0-14.5); WHITE BLOOD COUNT 15.7 10^3/uL (4.3-11.0)
[2020-05-17 06:50] LABS: BASOPHILS # (AUTO) 0.5 10^3/uL (0.0-0.1); EOSINOPHILS # (AUTO) 0.6 10^3/uL (0.0-0.3); MONOCYTES # (AUTO) 0.8 X 10^3 (0.0-1.0)
[2020-05-17] MEDS ORDERED: medroxyPROGESTERone 10 MG (PROVERA) TAB PO SCH (09:00)
--- NOTE | 2020-05-17 10:23 | History & Physical-OB/GYN ---
History of Present Illness History of Present Illness Reason for visit/HPI Ms. Arnold was admitted through the Emergency Department secondary to nausea, vomiting, heavy bleeding and near syncopal episodes. Her Hemoglobin in the ED was 4.9. Date of Admission May 16, 2020 at 21:48 Date Seen by a Provider: May 17, 2020 Time Seen by a Provider: 10:00 I consulted on this patient on 05/17/20 10:18 Attending Physician Conor Antoine DO Admitting Physician Conor Antoine DO Consult Allergies and Home Medications Allergies Coded Allergies: No Known Drug Allergies (Unverified , 03/03/20) Home Medications Cephalexin 500 Mg Tablet, 500 MG PO BID Prescribed by: DIONE MORRISON on 03/03/20 0913 Patient Home Medication List Home Medication List Reviewed: Yes Past Jmgovmm-Aiipjv-Kvzohk Hx Patient Social History Number of Children: 2 Number of living children: 2 Alcohol Use: Denies Use Recreational Drug Use: No Smoking Status: Never a Smoker 2nd Hand Smoke Exposure: No Recent Foreign Travel: No Contact w/other who traveled: No Recent Infectious Disease Expo: No Surgeries Yes Section ( x 2) Respiratory No Cardiovascular Yes Hypertension Neurological No Reproductive System : No Genitourinary No Gastrointestinal No Musculoskeletal No Endocrine History of Endocrine Disorders: No HEENT History of HEENT Disorders: No Cancer No Psychosocial History of Psychiatric Problem: No Integumentary History of Skin or Integumenta: No Review of Systems Constitutional: see HPI Physical Exam Physical Exam Vital Signs Vital Signs Date Time Temp Pulse Resp B/P (MAP) Pulse Ox O2 Delivery O2 Flow Rate FiO2 05/17/20 09:45 36.8 89 18 100/53 100 Room Air 05/17/20 09:34 36.9 95 16 100/52 100 05/17/20 08:00 36.8 105 16 109/54 (72) 100 Room Air 05/17/20 08:00 100 Room Air 05/17/20 07:05 90 05/17/20 06:45 37.0 89 24 101/53 100 Room Air 05/17/20 03:39 37.3 106 22 111/52 (71) 100 Room Air 05/17/20 01:50 37.1 116 24 111/55 97 Room Air 05/17/20 01:22 37.3 112 20 107/53 100 Room Air 05/17/20 01:00 107 05/17/20 00:35 107 05/17/20 00:23 37.3 113 22 120/75 (90) 100 Room Air 05/16/20 22:30 Room Air 05/16/20 22:30 37.4 64 22 105/54 100 Room Air 05/16/20 22:25 37.2 118 20 99/58 (72) 100 Room Air 05/16/20 22:15 37.2 122 20 99/58 100 Room Air 05/16/20 20:18 37.6 138 22 139/78 (98) 100 Room Air I & O 05/17/20 07:00 Intake Total 3375 ml Output Total 1500 ml Balance 1875 ml Capillary Refill : Less Than 3 Seconds Labs Laboratory Tests 05/16/20 20:30: White Blood Count 18.1H, Red Blood Count 2.83L, Hemoglobin 4.7*L, Hematocrit 19*L, Mean Corpuscular Volume 67L, Mean Corpuscular Hemoglobin 17L, Mean Corpuscular Hemoglobin Concent 25L, Red Cell Distribution Width 20.5H, Platelet Count 806H, Mean Platelet Volume 10.7H, Neutrophils (%) (Auto) 68, Lymphocytes (%) (Auto) 25, Monocytes (%) (Auto) 4, Eosinophils (%) (Auto) 3, Basophils (%) (Auto) 0, Neutrophils # (Auto) 12.3H, Lymphocytes # (Auto) 4.5H, Monocytes # (Auto) 0.8, Eosinophils # (Auto) 0.5H, Basophils # (Auto) 0.1, Neutrophils % (Manual) 69, Lymphocytes % (Manual) 18, Monocytes % (Manual) 2, Eosinophils % (Manual) 4, Basophils % (Manual) 1, Nucleated Red Blood Cells 4, Atypical Lymphocytes 6, Smudge Cells SLIGHT, Hypochromasia MODERATE, Basophilic Stippling SLIGHT, Anisocytosis MODERATE, Microcytosis SLIGHT, Prothrombin Time 13.2, INR Comment 1.0, Activated Partial Thromboplast Time 28, D-Dimer 1.85H, Sodium Level 137, Potassium Level 3.3L, Chloride Level 107, Carbon Dioxide Level 19L, Anion Gap 11, Blood Urea Nitrogen 6L, Creatinine 0.73, Estimat Glomerular Filtration Rate > 60, BUN/Creatinine Ratio 8, Glucose Level 137H, Calcium Level 8.0L, Corrected Calcium 8.5, Total Bilirubin 0.2, Aspartate Amino Transf (AST/SGOT) 10, Alanine Aminotransferase (ALT/SGPT) 9, Alkaline Phosphatase 83, C-Reactive Protein High Sensitivity 4.89H, Total Protein 7.2, Albumin 3.4, Serum Test, Qualitative NEGATIVE 05/16/20 21:45: Urine Color ORANGE, Urine Clarity SL CLOUDY, Urine pH 7.5, Urine Specific [place] 1.010L, Urine Protein TRACEH, Urine Glucose (UA) NEGATIVE, Urine Ketones NEGATIVE, Urine Nitrite NEGATIVE, Urine Bilirubin NEGATIVE, Urine Urobilinogen 0.2, Urine Leukocyte Esterase 3+H, Urine RBC (Auto) 3+H, Urine RBC TNTCH, Urine WBC 5-10H, Urine Crystals NONE, Urine Bacteria TRACE, Urine Casts NONE, Urine Mucus NEGATIVE, Urine Culture Indicated NO 05/17/20 05:00: White Blood Count 15.7H, Red Blood Count 3.52L, Hemoglobin 7.4#L, Hematocrit 25L , Mean Corpuscular Volume 72L, Mean Corpuscular Hemoglobin 21L, Mean Corpuscular Hemoglobin Concent 29L, Red Cell Distribution Width 22.3H, Platelet Count 650H, Mean Platelet Volume 10.5H, Neutrophils (%) (Auto) 63, Lymphocytes (%) (Auto) 29, Monocytes (%) (Auto) 5, Eosinophils (%) (Auto) 3, Basophils (%) (Auto) 0, Ne utrophils # (Auto) 9.8H, Lymphocytes # (Auto) 4.5H, Monocytes # (Auto) 0.8, Eosinophils # (Auto) 0.6H, Basophils # (Auto) 0.5H 05/17/20 05:20: Sodium Level 137, Potassium Level 3.7, Chloride Level 108H, Carbon Dioxide Level 18L, Anion Gap 11, Blood Urea Nitrogen 5L, Creatinine 0.66, Estimat Glomerular Filtration Rate > 60, BUN/Creatinine Ratio 8, Glucose Level 95, Calcium Level 7.8L, Corrected Calcium 8.5, Total Bilirubin 0.6, Aspartate Amino Transf (AST/SGOT) 12, Alanine Aminotransferase (ALT/SGPT) 6, Alkaline Phosphatase 70, Total Protein 6.4, Albumin 3.1L General Appearance: No Apparent Distress, WD/WN Respiratory: Chest Non Tender, Lungs Clear, Normal Breath Sounds Cardiovascular: Regular Rate, Rhythm, No Murmur Abdominal: normal bowel sounds, non tender, soft Labia: WNL Vagina: WNL Uterus: WNL Extremity: Normal Inspection, Normal Range of Motion, No Calf Tenderness Assessment/Plan Assessment and Plan Assessment: Abnormal Uterine Bleeding 2. Acute Blood Loss Anemia 3. Pelvic Pain 4. Nausea with Vomiting 5. Near Syncopal Episodes Admission Diagnosis Admission Status: Observation Reason for Inpatient Admission: Acute blood loss anemia with Near Syncopal Episodes Clinical Quality Measures DVT/VTE Risk/Contraindication: Risk Factor Score Per Nursin RFS Level Per Nursing on Admit: 3=High CONOR ANTOINE DO May 17, 2020 10:23
[2020-05-17] MEDS ORDERED: ACET-789 PO (10:33)
[2020-05-17] MEDS ORDERED: IBUP-1780 PO (10:33)
[2020-05-17] MEDS ORDERED: IRON1TAB97 PO (10:33)
[2020-05-17] MEDS ORDERED: MEDR10TA9 PO (10:33)
--- NOTE | 2020-05-17 10:39 | Discharge Summary ---
Diagnosis/Chief Complaint Date of Admission May 16, 2020 at 21:48 Date of Discharge May 17, 2020 Discharge Date: May 17, 2020 Discharge Time: 13:00 Admission Diagnosis Admission Diagnosis Abnormal Uterine Bleeding 2. Acute Blood Loss Anemia 3. Near Syncopal Episodes 4. Nausea with Vomiting 5. Pelvic Pain Discharge Diagnosis Assessment: Abnormal Uterine Bleeding 2. Acute Blood Loss Anemia 3. Pelvic Pain 4. Nausea with Vomiting 5. Near Syncopal Episodes Reason Hospital Visit Ms. Arnold was admitted through the Emergency Department secondary to nausea, vomiting, heavy bleeding and near syncopal episodes. Her Hemoglobin in the ED was 4.9. Discharge Summary Hospital Course Was the Problem List Reviewed?: Yes Hospital Course Ms. Arnold was seen in the Emergency Department secondary to heavy vaginal bleeding. At that time her Hemoglobin was 4.9. She was admitted, transfused 4 units of packed blood cells. Also, she was given Depo Provera intramuscularly to slow her bleeding. After receiving three units of blood (the fourth being transfused during my interview) Ms. Arnold was feeling much better. I will discharge her to home with instructions, prescriptions and a follow up appointment in eight days at the [facility] clinic. Labs Laboratory Tests 05/16/20 20:30: White Blood Count 18.1H, Red Blood Count 2.83L, Hemoglobin 4.7*L, Hematocrit 19*L, Mean Corpuscular Volume 67L, Mean Corpuscular Hemoglobin 17L, Mean Corpuscular Hemoglobin Concent 25L, Red Cell Distribution Width 20.5H, Platelet Count 806H, Mean Platelet Volume 10.7H, Neutrophils # (Auto) 12.3H, Lymphocytes # (Auto) 4.5H, Eosinophils # (Auto) 0.5H, D-Dimer 1.85H, Potassium Level 3.3L, Carbon Dioxide Level 19L, Blood Urea Nitrogen 6L, Glucose Level 137H, Calcium Level 8.0L, C-Reactive Protein High Sensitivity 4.89H 05/16/20 21:45: Urine Specific [place] 1.010L, Urine Protein TRACEH, Urine Leukocyte Esterase 3+H, Urine RBC (Auto) 3+H, Urine RBC TNTCH, Urine WBC 5-10H 05/17/20 05:00: White Blood Count 15.7H, Red Blood Count 3.52L, Hemoglobin 7.4#L, Hematocrit 25L , Mean Corpuscular Volume 72L, Mean Corpuscular Hemoglobin 21L, Mean Corpuscular Hemoglobin Concent 29L, Red Cell Distribution Width 22.3H, Platelet Count 650H, Mean Platelet Volume 10.5H, Neutrophils # (Auto) 9.8H, Lymphocytes # (Auto) 4.5H , Eosinophils # (Auto) 0.6H, Basophils # (Auto) 0.5H 05/17/20 05:20: Carbon Dioxide Level 18L, Blood Urea Nitrogen 5L, Calcium Level 7.8L, Chloride Level 108H, Albumin 3.1L Procedures None. Discharge Physical Examination Allergies: Coded Allergies: No Known Drug Allergies (Unverified , 03/03/20) Vitals & I&Os Vital Signs Date Time Temp Pulse Resp B/P (MAP) Pulse Ox O2 Delivery O2 Flow Rate FiO2 05/17/20 09:45 36.8 89 18 100/53 100 Room Air General Appearance: Alert, Oriented X3, Cooperative HEENT: Atraumatic Respiratory: Clear to Auscultation, Normal Air Movement Cardiovascular: Regular Rate, No Murmurs Abdominal: Normal Bowel Sounds, No Tenderness Extremities: No Clubbing, No Cyanosis Neuro: Normal Gait, Normal Speech Psych/Mental Status: Mental Status NL Discharge Home Medications Reviewed and agree with Discharge Medication list on patient's Discharge Instruction sheet Instructions to Patient/Family Please see electronic discharge instructions given to patient. Clinical Quality Measures DVT/VTE Risk/Contraindication: Risk Factor Score Per Nursin RFS Level Per Nursing on Admit: 3=High JORDAN PERKINS DO May 17, 2020 10:39
[2020-05-17] MEDS ORDERED: DEPO PROVERA IM ONE (10:45)
[2020-05-17] MEDS ORDERED: DEPO PROVERA IM SCH (16:00)
--- NOTE | 2020-05-18 11:32 | Physician Query Clarification ---
PQ-Further Specificity Admission/Discharge Admission Date: May 16, 2020 at 21:48 Discharge Date: May 17, 2020 at 17:35 The medical record reflects the following clinical scenario: History/Risk Factors: Covid + one week ago, heavy vaginal bleeding acute blood loss anemia Clinical Findings: fatigue, dyspnea, Hgb/Hct 4.7/19, , near syncope Treatment: transfused 4 units, Provera Question: Can you further specify if the patient still has acute positive covid or if this has resolved for this hospitalization per the clinical indicators above? Please document a response in the Progress Notes or Discharge Summary. 1. Yes, patient still has active positive covid during this stay 2. No, covid has resolved not currently active 3. Other, with explanation of the clinical findings. 4. Clinically undetermined, no explanation for the clinical findings. PHYSICIAN RESPONSE Can you specify per above: 1 Please remember a lack of response to the above will prompt a phone page by CDI/Coding staff. In responding to this query, please exercise your independent professional judgment. The purpose of this communication is to more accurately reflect the complexity of your patients condition. The fact that a question is asked does not imply that any particular answer is desired or expected. Thank you for your timely response to this clarification. Requestors name: Maribell THIS PHYSICIAN QUERY FORM IS A PERMANENT PART OF THE MEDICAL RECORD MARIBELL JACOBSON May 18, 2020 11:32 JORDAN PERKINS DO May 18, 2020 15:56
== END 2020-05-17 17:35 | disposition home or self-care (01) | DRG 811 ==
LOC: EDUNIT# 20:18 → ER 20:20 → 4TH 21:48
PROVIDERS: ADMIT Obstetrics & Gynecology; ATTEND Obstetrics & Gynecology
DX: D62 Acute posthemorrhagic anemia (principal); U07.1 COVID-19; N93.9 Abnormal uterine and vaginal bleeding, unspecified; I10 Essential (primary) hypertension; R10.2 Pelvic and perineal pain; R11.2 Nausea with vomiting, unspecified; R55 Syncope and collapse; N20.0 Calculus of kidney; R53.83 Other fatigue; R06.00 Dyspnea, unspecified
CPT/HCPCS: 36415; 71275; 74174; 80053; 81000; 84703; 85007; 85025; 85027; 85379; 85610; 85730; 86141; 86850; 86900; 86901; 86920

== ENCOUNTER 2020-09-01 06:56 | Emergency (ER) | payer SELFPAY ==
[~2020-09-01] VITALS: Ht 151 cm; Wt 93.0 kg
[~2020-09-01 06:56] MED LIST changes: +ACET-789 PO; +IBUP-1780 PO; +IRON1TAB97 PO; +MEDR10TA9 PO
[2020-09-01] MEDS ORDERED: KETOROLAC 15 MG/ML VIAL IVP ONE (07:45)
[2020-09-01] MEDS ORDERED: KETOROLAC 30 MG/ML VIAL ONE (07:47)
[2020-09-01 08:13] LABS: BASOPHILS # (AUTO) 0.1 10^3/uL (0.0-0.1); BASOPHILS % (AUTO) 1 % (0-10); EOSINOPHILS # (AUTO) 0.9 10^3/uL (0.0-0.3); EOSINOPHILS % (AUTO) 6 % (0-10); HEMATOCRIT 36 % (35-52); HEMOGLOBIN 10.4 g/dL (11.5-16.0); LYMPHOCYTES # (AUTO) 3.8 10^3/uL (1.0-4.0); LYMPHOCYTES % (AUTO) 24 % (12-44); MEAN CORPUSCULAR HEMOGLOBIN 21 pg (25-34); MEAN CORPUSCULAR HGB CONC 29 g/dL (32-36); MEAN CORPUSCULAR VOLUME 72 fL (80-99); MEAN PLATELET VOLUME 11.8 fL (9.0-12.2); MONOCYTES # (AUTO) 0.7 10^3/uL (0.0-1.0); MONOCYTES % (AUTO) 5 % (0-12); NEUTROPHILS % (AUTO) 65 % (42-75); PLATELET COUNT 618 10^3/uL (130-400); WHITE BLOOD COUNT 15.5 10^3/uL (4.3-11.0)
[2020-09-01 08:24] LABS: BILIRUBIN,URINE NEGATIVE (NEGATIVE); CLARITY,URINE CLEAR; COLOR,URINE YELLOW; GLUCOSE, URINE (UA) NEGATIVE (NEGATIVE); KETONES,URINE NEGATIVE (NEGATIVE); LEUKOCYTE ESTERASE ,URINE 1+ (NEGATIVE); NITRITE,URINE NEGATIVE (NEGATIVE); PROTEIN,URINE TRACE (NEGATIVE)
[2020-09-01 08:35] LABS: BACTERIA,URINE MODERATE /HPF; WBC,URINE 50-100 /HPF
[2020-09-01 08:41] LABS: CHLORIDE 108 MMOL/L (98-107); POTASSIUM 3.6 MMOL/L (3.6-5.0); SODIUM 137 MMOL/L (135-145)
[2020-09-01 08:42] LABS: CALCIUM 8.6 MG/DL (8.5-10.1); GLUCOSE 108 MG/DL (70-105)
[2020-09-01 08:44] LABS: CARBON DIOXIDE 19 MMOL/L (21-32)
[2020-09-01] MEDS ORDERED: cefTRIAXone FOR IV USE 1,000 MG in WATER (STERILE) FOR INJECTION 10 ML IV ONE (08:45)
[2020-09-01 08:46] LABS: CREATININE SERUM 0.62 MG/DL (0.60-1.30); GFR ESTIMATED > 60
[2020-09-01 08:47] LABS: BUN/CREATININE RATIO 19
[2020-09-01] MEDS ORDERED: NS IV 1000 ML 1,000 ML IV STA (08:48)
[2020-09-01 08:49] LABS: ANISOCYTOSIS SLIGHT; BAND NEUTROPHILS 2 %; BASOPHILS % (MANUAL) 0 %; EOSINOPHILS % (MANUAL) 1 %; LYMPHOCYTES % (MANUAL) 23 %; MONOCYTES % (MANUAL) 4 %; NEUTROPHILS % (MANUAL) 70 %
[2020-09-01] MEDS ORDERED: fentaNYL INJECTION 100 MCG/2 ML AMP IVP ONE (09:00)
--- NOTE | 2020-09-01 09:00 | ED Abdominal Pain ---
General Chief Complaint: Female Reproductive Stated Complaint: ABD PAIN Nursing Triage Note: PT TO ED W/ C/O VAGINAL BLEEDING ET ABD PAIN ONSET X2 DAYS. PT REPORTS SHE HAD SIMILAR SYMPTOMS X3 MOS AGO. ALSO REPORTS SHE ATTEMPTED TO GET IN TO HER PCP BUT REPORTS "HE WAS TOO BUSY". NO OTHER C/O VOICED 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 Exam Limitations: Language Barrier History of Present Illness Date Seen by Provider: Sep 01, 2020 Time Seen by Provider: 07:20 Initial Comments Patient is a 30-year-old female who presents to the emergency room today with a chief complaint of lower abdominal pain. Patient states onset of pain was Monday, 3 days ago. Patient states that it initially started with waxing and waning symptoms but is now more constant. Patient has not taken any [id number] medications for the pain. She endorses some mild vaginal bleeding on Monday. She states she had similar pain 3 months ago when she came to the emergency room and was found to be significantly anemic secondary to abnormal vaginal bleeding. Patient states that she has had burning with urination for about the last 3 weeks. She denies any abnormal vaginal discharge. Patient states that she follows at [facility]. Patient states her last visit was about 4 weeks ago. She is a G2, P2. Previous in 2011. She is a non-smoker nondrinker. Patient denies any fevers, chills, productive cough, URI symptoms. No GI symptoms. She is not nauseated. All other review of systems reviewed and negative except as stated. Timing/Duration: 3-4 Days Severity/Quality: Moderate, Cramping Location: Suprapubic Radiation: No Radiation Activities at Onset: None Associated Symptoms: Denies Symptoms Allergies and Home Medications Allergies Coded Allergies: No Known Drug Allergies (Unverified , 03/03/20) Home Medications Acetaminophen with Codeine 1 Each Tablet, 1 EACH PO Q6H Prescribed by: JORDAN PERKINS on 05/17/20 1033 Cephalexin 500 Mg Tablet, 500 MG PO BID Prescribed by: DIONE MORRISON on 03/03/20 0934 Cephalexin 500 Mg Capsule, 500 MG PO Q12HR Prescribed by: JOVANNA ENRIQUEZ on 09/01/20 0904 Ibuprofen 800 Mg Tablet, 800 MG PO Q8H PRN for PAIN-MILD Prescribed by: JORDAN PERKINS on 05/17/20 1033 Iron,Carbonyl/Ascorbic Acid 1 Each Tablet.dr, 1 EACH PO DAILY Prescribed by: JORDAN CHEEKS on 05/17/20 1033 Medroxyprogesterone Acetate 10 Mg Tablet, 10 MG PO DAILY Prescribed by: JORDAN CHEEKS on 05/17/20 1033 Patient Home Medication List Home Medication List Reviewed: Yes Review of Systems Review of Systems Constitutional: no symptoms reported EENTM: No Symptoms Reported Respiratory: No Symptoms Reported Cardiovascular: No Symptoms Reported Gastrointestinal: Abdominal Pain Genitourinary: Burning Musculoskeletal: no symptoms reported Past Lepmrwb-Mnqbce-Szthyk Hx Patient Social History Alcohol Use: Denies Use Recreational Drug Use: No Smoking Status: Never a Smoker 2nd Hand Smoke Exposure: No Recent Foreign Travel: No Contact w/Someone Who Travel: No Recent Infectious Disease Expo: No Physical Abuse: No Sexual Abuse: No Mistreated: No Fear: No Past Medical History Surgeries: Yes Section Respiratory: No Cardiac: Yes Hypertension Neurological: No Genitourinary: No Gastrointestinal: No Musculoskeletal: No Endocrine: No HEENT: No Cancer: No Psychosocial: No Integumentary: No Physical Exam Vital Signs Vital Signs - First Documented 09/01/20 07:10 Temp 36.7 Pulse 89 Resp 20 B/P (MAP) 124/82 (96) Pulse Ox 98 O2 Delivery Room Air Capillary Refill : Less Than 3 Seconds Height/Weight/BMI Height: '" Weight: lbs. oz. kg; 40.00 BMI Method: General Appearance: WD/WN, mild distress HEENT: PERRL/EOMI Neck: full range of motion Respiratory: chest non-tender, lungs clear, normal breath sounds, no respiratory distress, no accessory muscle use Cardiovascular: regular rate, rhythm Gastrointestinal: soft, tenderness (suprapubic; no CVA tenderness) Extremities: normal range of motion, normal inspection, no pedal edema Back: normal inspection, no CVA tenderness Pelvic: other (deferred) Neurologic/Psychiatric: no motor/sensory deficits, alert, normal mood/affect, oriented x 3 Skin: normal color, warm/dry Progress/Results/Core Measures Results/Orders Lab Results Laboratory Tests Test 09/01/20 07:54 09/01/20 08:05 Range/Units White Blood Count 15.5 H 4.3-11.0 10^3/uL Red Blood Count 4.96 3.80-5.11 10^6/uL Hemoglobin 10.4 L 11.5-16.0 g/dL Hematocrit 36 35-52 % Mean Corpuscular Volume 72 L 80-99 fL Mean Corpuscular Hemoglobin 21 L 25-34 pg Mean Corpuscular Hemoglobin Concent 29 L 32-36 g/dL Red Cell Distribution Width 17.7 H 10.0-14.5 % Platelet Count 618 H 130-400 10^3/uL Mean Platelet Volume 11.8 9.0-12.2 fL Immature Granulocyte % (Auto) 0 % Neutrophils (%) (Auto) 65 42-75 % Lymphocytes (%) (Auto) 24 12-44 % Monocytes (%) (Auto) 5 0-12 % Eosinophils (%) (Auto) 6 0-10 % Basophils (%) (Auto) 1 0-10 % Neutrophils # (Auto) 10.0 H 1.8-7.8 10^3/uL Lymphocytes # (Auto) 3.8 1.0-4.0 10^3/uL Monocytes # (Auto) 0.7 0.0-1.0 10^3/uL Eosinophils # (Auto) 0.9 H 0.0-0.3 10^3/uL Basophils # (Auto) 0.1 0.0-0.1 10^3/uL Immature Granulocyte # (Auto) 0.0 0.0-0.1 10^3/uL Neutrophils % (Manual) 70 % Lymphocytes % (Manual) 23 % Monocytes % (Manual) 4 % Eosinophils % (Manual) 1 % Basophils % (Manual) 0 % Band Neutrophils 2 % Anisocytosis SLIGHT Sodium Level 137 135-145 MMOL/L Potassium Level 3.6 3.6-5.0 MMOL/L Chloride Level 108 H 98-107 MMOL/L Carbon Dioxide Level 19 L 21-32 MMOL/L Anion Gap 10 5-14 MMOL/L Blood Urea Nitrogen 12 7-18 MG/DL Creatinine 0.62 0.60-1.30 MG/DL Estimat Glomerular Filtration Rate > 60 BUN/Creatinine Ratio 19 Glucose Level 108 H 70-105 MG/DL Calcium Level 8.6 8.5-10.1 MG/DL Urine Color YELLOW Urine Clarity CLEAR Urine pH 6.0 5-9 Urine Specific [place] 1.025 H 1.016-1.022 Urine Protein TRACE H NEGATIVE Urine Glucose (UA) NEGATIVE NEGATIVE Urine Ketones NEGATIVE NEGATIVE Urine Nitrite NEGATIVE NEGATIVE Urine Bilirubin NEGATIVE NEGATIVE Urine Urobilinogen 0.2 < = 1.0 MG/DL Urine Leukocyte Esterase 1+ H NEGATIVE Urine RBC (Auto) TRACE-I NEGATIVE Urine RBC 2-5 H /HPF Urine WBC 50-100 H /HPF Urine Squamous Epithelial Cells 5-10 /HPF Urine Crystals NONE /LPF Urine Bacteria MODERATE H /HPF Urine Casts NONE /LPF Urine Mucus NEGATIVE /LPF Urine Culture Indicated YES Urine Test NEGATIVE NEGATIVE My Orders Orders - JOVANNA ENRIQUEZ MD Ed Iv/Invasive Line Start (09/01/20 07:43) Cbc With Automated Diff (09/01/20 07:43) Basic Metabolic Panel (09/01/20 07:43) Hcg,Qualitative Urine (09/01/20 07:43) Ua Culture If Indicated (09/01/20 07:43) Ketorolac Injection (Toradol Injection) (09/01/20 07:45) Ketorolac Injection (Toradol Injection) (09/01/20 07:47) Manual Differential (09/01/20 07:54) Urine Culture (09/01/20 08:05) Ceftriaxone For Iv Use (Rocephin For I (09/01/20 08:45) Ns Iv 1000 Ml (Sodium Chloride 0.9%) (09/01/20 08:48) Fentanyl Injection (Sublimaze Injection (09/01/20 09:00) Medications Given in ED Current Medications Medications Dose Ordered Sig/Arslan Route Start Time Stop Time Status Last Admin Dose Admin Ketorolac Tromethamine 30 mg STK-MED ONCE .ROUTE 09/01/20 07:47 09/01/20 07:49 DC 09/01/20 08:05 15 MG Vital Signs/I&O 09/01/20 07:10 Temp 36.7 Pulse 89 Resp 20 B/P (MAP) 124/82 (96) Pulse Ox 98 O2 Delivery Room Air Blood Pressure Mean: 96 Progress Progress Note : Time: 08:59 Progress Note Patient's resting comfortably in the emergency department. Patient's labs have been reviewed she has a leukocytosis with a left shift. She has a normal BM 7 except for a CO2 of 19. Her urine shows infection. Patient will be treated for acute cystitis. She has no evidence of CVA tenderness, fever, excessive nausea vomiting. I do not suspect pyelonephritis. Patient has no abnormal vaginal bleeding today therefore a pelvic exam will not be done. She will be treated outpatient with a weeks worth of antibiotics, Keflex for 7 days. She will be given good return precautions. Departure Impression Primary Impression: Urinary tract infection Additional Impression: Abdominal pain Disposition: 01 HOME, SELF-CARE Condition: Stable Departure-Patient Inst. Decision time for Depature: 09:47 Referrals: NO,LOCAL PHYSICIAN (PCP/Family) Primary Care Physician Patient Instructions: Severe Abdominal Pain, Adult (DC), Urinary Tract Infection, Adult (DC) Add. Discharge Instructions: Drink more fluids to stay well hydrated. Take over the counter Ibuprofen or Alleve as directed on the bottle for pain. You can also use over the counter "AZO" for burning with urination. Please come back to the Emergency Department for re-evaluation if you have any worsening pain, fever, nausea and vomiting or any other emergent concerns. All discharge instructions reviewed with patient and/or family. Voiced understanding. Scripts Cephalexin (Keflex) 500 Mg Capsule 500 MG PO Q12HR for 7 Days, #14 CAP Prov: JOVANNA ENRIQUEZ MD 09/01/20 JOVANNA ENRIQUEZ MD Sep 01, 2020 09:00
[2020-09-01] MEDS ORDERED: CEPH-507 PO (09:04)
[2020-09-01 10:42] VITALS: BP 113/62
== END 2020-09-01 10:42 | disposition home or self-care (01) ==
LOC: EDUNIT# 06:56 → ER 06:58
DX: N39.0 Urinary tract infection, site not specified (principal); R10.30 Lower abdominal pain, unspecified
CPT/HCPCS: 36415; 80048; 81000; 84703; 85007; 85027; 87088

== ENCOUNTER 2020-10-21 05:38 | Outpatient (RCR) | payer OTHER ==
[~2020-10-21] VITALS: Ht 151 cm; Wt 98.6 kg
[~2020-10-21 05:38] MED LIST changes: +CEPH-507 PO
[2020-10-23] MEDS ORDERED: IBUP-1780 PO (14:24)
== END 2020-10-21 11:48 | disposition home or self-care (01) ==
LOC: PREOP 05:38
PROVIDERS: ATTEND Obstetrics & Gynecology
DX: Z01.812 Encounter for preprocedural laboratory examination (principal); N92.0 Excessive and frequent menstruation with regular cycle; N85.8 Other specified noninflammatory disorders of uterus; Z20.828 Contact with and (suspected) exposure to other viral communicable diseases
CPT/HCPCS: 87635

== ENCOUNTER 2020-10-23 11:43 | Day surgery (SDC) | payer OTHER ==
[2020-10-23] VITALS (12 sets, daily range): BP systolic 93–133; BP diastolic 52–100
[~2020-10-23] VITALS: Ht 151 cm; Wt 98.0 kg
[2020-10-23] MEDS ORDERED: ceFAZolin INJECTION 1,000 MG in WATER (STERILE) FOR INJECTION 10 ML IV ONE (12:00)
[2020-10-23] MEDS ORDERED: CATHETER FLUSH 10 ML SYR IV PRN (12:15)
[2020-10-23] MEDS ORDERED: MIDAZOLAM 2 MG/2 ML (VERSED) VIAL ONE (12:18)
[2020-10-23] MEDS: LACTATED RINGERS 1,000 ML IV PRN ×2 (12:30→13:26)
[2020-10-23] MEDS ORDERED: fentaNYL INJECTION 100 MCG/2 ML AMP ONE (12:34)
[2020-10-23 12:39] LABS: BASOPHILS # (AUTO) 0.1 10^3/uL (0.0-0.1); BASOPHILS % (AUTO) 1 % (0-10); EOSINOPHILS # (AUTO) 0.5 10^3/uL (0.0-0.3); EOSINOPHILS % (AUTO) 4 % (0-10); HEMATOCRIT 36 % (35-52); HEMOGLOBIN 10.1 g/dL (11.5-16.0); LYMPHOCYTES # (AUTO) 3.1 10^3/uL (1.0-4.0); LYMPHOCYTES % (AUTO) 22 % (12-44); MEAN CORPUSCULAR HEMOGLOBIN 20 pg (25-34); MEAN CORPUSCULAR HGB CONC 28 g/dL (32-36); MEAN CORPUSCULAR VOLUME 71 fL (80-99); MEAN PLATELET VOLUME 11.3 fL (9.0-12.2); MONOCYTES # (AUTO) 0.6 10^3/uL (0.0-1.0); MONOCYTES % (AUTO) 4 % (0-12); NEUTROPHILS % (AUTO) 70 % (42-75); PLATELET COUNT 750 10^3/uL (130-400); WHITE BLOOD COUNT 14.3 10^3/uL (4.3-11.0)
[2020-10-23] MEDS ORDERED: SEVOFLURANE (ULTANE) 15 ML INHAL SOLN ONE ×3 (12:39→15:00)
[2020-10-23] MEDS ORDERED: proPOfol 200 MG/20 ML (DIPRIVAN) VIAL IV ONE (12:39)
[2020-10-23 12:52] LABS: BAND NEUTROPHILS 0 %; LYMPHOCYTES % (MANUAL) 27 %; MONOCYTES % (MANUAL) 6 %; NEUTROPHILS % (MANUAL) 63 %
[2020-10-23] MEDS ORDERED: LIDOCAINE PF 2% 5 ML (XYLOCAINE) VIAL ONE (12:52)
[2020-10-23] MEDS ORDERED: ONDANSETRON 4 MG/2 ML (SDV) Z0FRAN ONE (12:52)
[2020-10-23 12:53] LABS: ANISOCYTOSIS MODERATE; BASOPHILS % (MANUAL) 0 %; EOSINOPHILS % (MANUAL) 4 %; POLYCHROMASIA MODERATE
[2020-10-23] MEDS ORDERED: ceFAZolin INJECTION 1,000 MG ONE (14:16)
[2020-10-23] MEDS ORDERED: WATER (STERILE) FOR INJECTION 10 ML ONE ×2 (14:17→15:27)
--- NOTE | 2020-10-23 14:22 | Progress Note-Post Operative ---
Post-Operative Progess Note Surgeon (s)/Copywriter (s) Surgeon VIVIANE VILLALOBOS MD Copywriter: None Pre-Operative Diagnosis Dysfunctional uterine bleeding/intrauterine mass Post-Operative Diagnosis Same with pathology pending Procedure & Operative Findings Date of Procedure 10/23/20 Procedure Performed/Findings Hysteroscopy with directed biopsy and D&C Anesthesia Type GETA Estimated Blood Loss Estimated blood loss (mL): Minimal Specimens/Packing Specimens Removed Endometrial curettings and directed endometrial biopsy VIVIANE VILLALOBOS MD Oct 23, 2020 14:22
--- NOTE | 2020-10-23 14:22 | Progress Note-Pre Operative ---
Pre-Operative Progress Note H&P Reviewed The H&P was reviewed, patient examined and no changes noted. Date Seen by Provider: Oct 23, 2020 Time Seen by Provider: 14:21 Date H&P Reviewed: Oct 23, 2020 Time H&P Reviewed: 14:21 Pre-Operative Diagnosis: Dysfunctional uterine bleeding/intrauterine mass VIVIANE VILLALOBOS MD Oct 23, 2020 14:22
[2020-10-23] MEDS ORDERED: IBUP-1780 PO (14:24)
--- NOTE | 2020-10-23 14:25 | Discharge Inst-Surgical ---
Discharge Inst-Surgical Consults/Follow Up Patient Instructions: As directed Orders & Referrals Follow Up Appt: Call to make follow up appt. for patient in 2 weeks. Activity: Rest for 24 hours, than as tolerated. Please call in RX to patient pharmacy. Diet: As tolerated- shower or tub bathe as desired. No driving for 24 hours, no alcoholic beverages for 24 hours, and nothing per vagina (no tampons, douching, or intercoarse) for 2 weeks. Patient to return to the clinic as soon as possible for: Temperature greater than 101F, Severe Pain, Foul discharge from incision or vagina, Excessive Bleeding (more than a period). Activity Activity as Tolerated: No Diet Discharge Diet: No Restrictions VIVIANE VILLALOBOS MD Oct 23, 2020 14:25
[2020-10-23] MEDS ORDERED: ONDANSETRON 4 MG/2 ML (SDV) Z0FRAN IVP PRN ×2 (14:30→15:15)
[2020-10-23] MEDS ORDERED: PROMETHAZINE INJ 25 MG/ML (PHENERGAN) AMP IM ONE (14:30)
[2020-10-23] MEDS ORDERED: fentaNYL INJECTION 100 MCG/2 ML AMP IVP PRN (14:30)
[2020-10-23] MEDS ORDERED: D5 LR IV SOLUTION 1,000 ML IV SCH (14:30)
[2020-10-23] MEDS ORDERED: KETOROLAC 30 MG/ML VIAL IVP ONE (14:30)
[2020-10-23] MEDS ORDERED: ESTROGENS CONJ INJECTION 25 MG in WATER (STERILE) FOR INJECTION 5 ML IV ONE (14:30)
[2020-10-23] MEDS ORDERED: morphine INJ 10 MG/ML 1ML (SYR OR VIAL) IVP ONE (15:15)
[2020-10-23] MEDS ORDERED: HYDROmorphone 2 MG/ML VIAL (DILAUDID) IV ONE (15:15)
[2020-10-23] MEDS ORDERED: ESTROGENS CONJ IV 25 MG/5 ML (PREMARIN) VIAL ONE (15:26)
[2020-10-23] MEDS ORDERED: KETOROLAC 30 MG/ML VIAL ONE (15:26)
--- NOTE | 2020-10-23 15:30 | Anesthesia-General Post-Op ---
General Patient Condition Mental Status/LOC: Same as Preop Cardiovascular: Satisfactory Nausea/Vomiting: Absent Respiratory: Satisfactory Pain: Controlled Complications: Absent Post Op Complications Complications None Follow Up Care/Instructions Patient Instructions None needed. Anesthesia/Patient Condition Patient Condition Patient is doing well, no complaints, stable vital signs, no apparent adverse anesthesia problems. RACHID KEY DO Oct 23, 2020 15:30
--- NOTE | 2020-10-23 22:58 | OPERATIVE REPORT ---
DATE OF SERVICE: 10/23/2020 PREOPERATIVE DIAGNOSES: Dysfunctional uterine bleeding and intrauterine mass. POSTOPERATIVE DIAGNOSES: Dysfunctional uterine bleeding and intrauterine mass with likely anterior uterine wall fibroid. OPERATIVE PROCEDURE: Hysteroscopy with directed biopsy and D and C. OPERATIVE DESCRIPTION: With the patient in supine position under satisfactory general anesthesia, she was repositioned in dorsal lithotomy position in the [facility] and prepped and draped in the usual fashion for vaginal surgery. The urinary bladder was drained with a straight catheter. A weighted speculum placed in posterior fornix of vagina, cervix exposed and grasped anteriorly with single tooth tenaculum. The uterus was then sounded to 9 cm with uterine sound. The cervix was then serially dilated with Roosevelt dilators to accommodate a hysteroscope, which was introduced and using LR as a distending medium, then endometrial cavity was examined. There were polypoid excrescences anterior emanating from a protrusion in the anterior wall of the uterus. These excrescences were biopsied directly as well as the protrusion, which appeared to be a fibroid after several biopsies were taken. That tissue was sent to pathology labeled as anterior uterine wall biopsy. The endometrial cavity was then sharply curettaged in all 4 quadrants to good uterine cry. The endometrial cavity was reexamined and there was no significant remaining abnormal tissue. There were several more fragments of tissue that we removed directly from the protruding anterior uterine wall lesion trying to make that flush with the balance of the uterine wall and that tissue was divided through the initial specimen. The hysteroscope was then removed. The tenaculum was removed from the cervix. There was no significant bleeding from the cervical os and no bleeding from the puncture site. Sponge and needle counts were correct on completion of the procedure. Blood loss was minimal. A total of 950 mL of LR was used for distending medium and over 900 mL was recovered. The patient was uneventfully awakened from her general anesthesia and transferred to the recovery room in stable condition with plans for discharge home PAR. Job ID: [id number] DocumentID: [id number] Dictated Date: 10/23/2020 15:01:18 Padding Gluer Date: 10/23/2020 22:57:53 Dictated By: VIVIANE VILLALOBOS MD
== END 2020-10-23 17:15 ==
LOC: SDC 11:43
PROVIDERS: ATTEND Obstetrics & Gynecology
DX: N93.8 Other specified abnormal uterine and vaginal bleeding (principal); K21.9 Gastro-esophageal reflux disease without esophagitis; D64.9 Anemia, unspecified; N92.1 Excessive and frequent menstruation with irregular cycle; E28.2 Polycystic ovarian syndrome; N85.8 Other specified noninflammatory disorders of uterus; Z79.899 Other long term (current) drug therapy
CPT/HCPCS: 36415; 84703; 85007; 85027; 87081; 88305

== ENCOUNTER 2020-11-24 17:34 | Day surgery (SDC) | payer OTHER ==
[~2020-11-24] VITALS: Ht 165 cm; Wt 98.0 kg
[2020-11-24] MEDS ORDERED: LACTATED RINGERS 1,000 ML IV ONE (18:15)
[2020-11-24] MEDS ORDERED: PANTOPRAZOLE 40 MG (PROTONIX) VIAL IV ONE (18:15)
[2020-11-24] MEDS ORDERED: ONDANSETRON 4 MG/2 ML (SDV) Z0FRAN IVP ONE (18:15)
--- NOTE | 2020-11-24 18:18 | ED Abdominal Pain ---
General Chief Complaint: Abdominal/GI Problems Stated Complaint: ABD PAIN Nursing Triage Note: ARRIVED VIA AMB TO ROOM03. USING LANGUAGE LINE. PT COMPLAINS OF ABD PAIN STARTING YESTERDAY. N/D X3 DAYS. 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 (MOST OF PAST MEDICAL HISTORY IS FROM OLD RECORDS) Exam Limitations: Language Barrier, Other (DESPITE LANGUAGE LINE, PT IS A VERY POOR/LIMITED AND DIFFICULT HISTORIAN) History of Present Illness Date Seen by Provider: Nov 24, 2020 Time Seen by Provider: 17:54 Initial Comments PT ARRIVES VIA POV FROM HOME C/O ABDOMINAL PAIN SINCE YESTERDAY--POINTS TO EPIGASTRIC AREA, THEN STATES "IT GOES ALL THE WAY DOWN" C/O NAUSEA, NO VOMITING C/O DIARRHEA X 3 TODAY HAS BEEN DRINKING JUICES, BUT LAST FOOD INTAKE WAS 2100 LAST NIGHT NO PROBLEMS URINATING NO FEVER NO KNOWN SICK CONTACTS PT HAD HYSTEROSCOPY AND D&C 10/23/[address] 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 PT UNABLE TO STATE IF SHE HAS HAD ANY BLEEDING SINCE D&C 10/23/[address] VILLALOBOS'S NOTE, PT IS NOT ON CONTROL AND HAS BEEN TRYING TO CONCEIVE. PCP: [facility]-Judie WELDING SUPERVISOR: DR. VILLALOBOS Allergies and Home Medications Allergies Coded Allergies: No Known Drug Allergies (Unverified , 10/23/20) Home Medications Ibuprofen 800 Mg Tablet, 800 MG PO Q6H PRN for PAIN Prescribed by: VIVIANE BELLA on 10/23/20 1424 Patient Home Medication List Home Medication List Reviewed: Yes Review of Systems Review of Systems Constitutional: no symptoms reported Respiratory: No Symptoms Reported Cardiovascular: No Symptoms Reported Gastrointestinal: See HPI, Abdominal Pain, Diarrhea, Nausea Genitourinary: No Symptoms Reported Musculoskeletal: no symptoms reported Past Uajopwn-Bmnqoo-Gkyttc Hx Past Med/Social Hx: Reviewed and Corrections made Patient Social History Alcohol Use: Denies Use Drug of Choice: DENIES Smoking Status: Never a Smoker 2nd Hand Smoke Exposure: No Recent Infectious Disease Expo: No Recent Hopitalizations: No Seasonal Allergies Seasonal Allergies: No Past Medical History Surgeries: Yes ( X 2; HYSTEROSCOPY WITH D&C 10/23/20) Section Respiratory: No Cardiac: Yes Hypertension Neurological: No : No Reproductive Disorders: Yes (DUB/MENORRHAGIA) Female Reproductive Disorders: Menstrual Problems, Ovarian Cyst Genitourinary: Yes Bladder Infection Gastrointestinal: No Musculoskeletal: No Endocrine: No HEENT: No Cancer: No Psychosocial: No Integumentary: No Blood Disorders: Yes (ANEMIA-DUE TO MENORRHAGIA) Family Medical History ADDITIONAL PMH: -ADMITTED 05/2020 FOR SEVERE ANEMIA DUE TO MENORRHAGIA--4 UNITS OF BLOOD TRANSFUSED Physical Exam Vital Signs Vital Signs - First Documented 11/24/20 17:50 Temp 37.0 Pulse 119 Resp 16 B/P (MAP) 148/95 (112) Pulse Ox 100 Capillary Refill : Less Than 3 Seconds Height/Weight/BMI Height: '" Weight: lbs. oz. kg; 39.00 BMI Method: General Appearance: WD/WN, obese Neck: normal inspection Respiratory: normal breath sounds, no respiratory distress, no accessory muscle use Cardiovascular: no murmur, tachycardia (UP TO 120'S ON ARRIVAL. ) Gastrointestinal: normal bowel sounds, soft, guarding (DIFFUSELY ), tenderness (DIFFUSE ABDOMINAL TENDERNESS) Extremities: normal inspection, normal capillary refill Back: no CVA tenderness Neurologic/Psychiatric: no motor/sensory deficits, alert, normal mood/affect, oriented x 3 Skin: normal color (PT IS ), warm/dry; No rash Progress/Results/Core Measures Results/Orders Lab Results Laboratory Tests Test 11/24/20 18:18 11/24/20 18:20 Range/Units Urine Color YELLOW Urine Clarity CLOUDY Urine pH 6.0 5-9 Urine Specific Telephone 1.020 1.016-1.022 Urine Protein TRACE H NEGATIVE Urine Glucose (UA) NEGATIVE NEGATIVE Urine Ketones NEGATIVE NEGATIVE Urine Nitrite NEGATIVE NEGATIVE Urine Bilirubin NEGATIVE NEGATIVE Urine Urobilinogen 0.2 < = 1.0 MG/DL Urine Leukocyte Esterase 2+ H NEGATIVE Urine RBC (Auto) 1+ H NEGATIVE Urine RBC NONE /HPF Urine WBC >100 H /HPF Urine Squamous Epithelial Cells 10-25 H /HPF Urine Crystals NONE /LPF Urine Bacteria MODERATE H /HPF Urine Casts NONE /LPF Urine Mucus NEGATIVE /LPF Urine Culture Indicated YES White Blood Count 18.7 H 4.3-11.0 10^3/uL Red Blood Count 5.43 H 3.80-5.11 10^6/uL Hemoglobin 11.0 L 11.5-16.0 g/dL Hematocrit 39 35-52 % Mean Corpuscular Volume 72 L 80-99 fL Mean Corpuscular Hemoglobin 20 L 25-34 pg Mean Corpuscular Hemoglobin Concent 28 L 32-36 g/dL Red Cell Distribution Width 18.4 H 10.0-14.5 % Platelet Count 663 H 130-400 10^3/uL Mean Platelet Volume 11.6 9.0-12.2 fL Immature Granulocyte % (Auto) 0 % Neutrophils (%) (Auto) 72 42-75 % Lymphocytes (%) (Auto) 19 12-44 % Monocytes (%) (Auto) 5 0-12 % Eosinophils (%) (Auto) 3 0-10 % Basophils (%) (Auto) 1 0-10 % Neutrophils # (Auto) 13.4 H 1.8-7.8 10^3/uL Lymphocytes # (Auto) 3.6 1.0-4.0 10^3/uL Monocytes # (Auto) 0.9 0.0-1.0 10^3/uL Eosinophils # (Auto) 0.6 H 0.0-0.3 10^3/uL Basophils # (Auto) 0.1 0.0-0.1 10^3/uL Immature Granulocyte # (Auto) 0.1 0.0-0.1 10^3/uL Neutrophils % (Manual) 73 % Lymphocytes % (Manual) 15 % Monocytes % (Manual) 8 % Eosinophils % (Manual) 4 % Hypochromasia SLIGHT Stomatocytes SLIGHT Sodium Level 138 135-145 MMOL/L Potassium Level 3.7 3.6-5.0 MMOL/L Chloride Level 107 98-107 MMOL/L Carbon Dioxide Level 19 L 21-32 MMOL/L Anion Gap 12 5-14 MMOL/L Blood Urea Nitrogen 10 7-18 MG/DL Creatinine 0.69 0.60-1.30 MG/DL Estimat Glomerular Filtration Rate > 60 BUN/Creatinine Ratio 14 Glucose Level 100 70-105 MG/DL Calcium Level 8.8 8.5-10.1 MG/DL Corrected Calcium 8.7 8.5-10.1 MG/DL Magnesium Level 1.9 1.6-2.4 MG/DL Total Bilirubin 0.2 0.1-1.0 MG/DL Aspartate Amino Transf (AST/SGOT) 15 5-34 U/L Alanine Aminotransferase (ALT/SGPT) 17 0-55 U/L Alkaline Phosphatase 134 40-136 U/L Total Protein 8.3 H 6.4-8.2 GM/DL Albumin 4.1 3.2-4.5 GM/DL Amylase Level 46 25-125 U/L Lipase 17 8-78 U/L My Orders Orders - TANA VANG DO Ed Iv/Invasive Line Start (11/24/20 18:06) Monitor-Rhythm Ecg Trace Only (11/24/20 18:06) Amylase (11/24/20 18:06) Cbc With Automated Diff (11/24/20 18:06) Comprehensive Metabolic Panel (11/24/20 18:06) Lipase (11/24/20 18:06) Magnesium (11/24/20 18:06) Ua Culture If Indicated (11/24/20 18:06) Ed Iv/Invasive Line Start (11/24/20 18:06) Ondansetron Injection (Zofran Injectio (11/24/20 18:15) Ed Iv/Invasive Line Start (11/24/20 18:06) Lactated Ringers (Lr 1000 Ml Iv Solution (11/24/20 18:15) Pantoprazole Injection (Protonix Injecti (11/24/20 18:15) Urine Bedside (11/24/20 18:11) Manual Differential (11/24/20 18:20) Urine Culture (11/24/20 18:18) Ct Abd/Pelvis Wo(Kidney Stone) (11/24/20 18:47) Acute Abd Series (11/24/20 18:47) Ceftriaxone For Iv Use (Rocephin For I (11/24/20 19:00) Ketorolac Injection (Toradol Injection) (11/24/20 18:47) Medications Given in ED Current Medications Medications Dose Ordered Sig/Arslan Route Start Time Stop Time Status Last Admin Dose Admin Ceftriaxone Sodium 1000 mg/ Sterile Water 10 ml @ 200 mls/hr ONCE ONCE IV 11/24/20 19:00 11/24/20 19:02 DC 11/24/20 19:30 200 MLS/HR Lactated Ringer's 1,000 ml @ 0 mls/hr Q0M ONCE IV 11/24/20 18:15 11/24/20 18:16 DC 11/24/20 18:28 1,000 MLS/HR Ondansetron HCl 4 mg ONCE ONCE IVP 11/24/20 18:15 11/24/20 18:16 DC 11/24/20 18:28 4 MG Pantoprazole 40 mg ONCE ONCE IV 11/24/20 18:15 11/24/20 18:16 DC 11/24/20 18:28 40 MG Vital Signs/I&O 11/24/20 17:50 Temp 37.0 Pulse 119 Resp 16 B/P (MAP) 148/95 (112) Pulse Ox 100 11/25/20 00:00 Intake Total 10 ml Balance 10 ml Blood Pressure Mean: 112 Progress Progress Note : Progress Note GIVEN IV FLUIDS, ZOFRAN, TORADOL AND ANTIBIOTICS NAUSEA AND PAIN IMPROVED UNEVENTFUL ER STAY Diagnostic Imaging Comments ABDOMEN XRAYS--PER RADIOLOGIST REPORT AT 192 IMPRESSION: Unremarkable bowel gas pattern with no sign of free air or bowel obstruction or ileus. Prominent Staghorn calculus in the left kidney. Single view of the chest was unremarkable. CT ABDOMEN /PELVIS--PER RADIOLOGIST REPORT AT 194 IMPRESSION: 1. Findings compatible with acute, uncomplicated appendicitis. 2. Large staghorn calculus of the left kidney. Reviewed: Reviewed by Me Departure Communication (Admissions) 1946--SPOKE WITH DR. YOUNG, SURGEON OFFICE MACHINE REPAIR SHOP SUPERVISOR. ACCEPTS PT FOR ADMIT. ORDERS NOTED. Impression Primary Impression: Appendicitis Additional Impressions: Urinary tract infection STAGHORN CALCULUS LEFT KIDNEY Disposition: ADMITTED INPATIENT Condition: Stable Admissions Decision to Admit Reason: Admit from ER (General) Decision to Admit/Date: Nov 24, 2020 Time/Decision to Admit Time: 19:50 Departure-Patient Inst. Referrals: TAWANDA DWYER MD [facility] [place] Discharge Instructions: All discharge instructions reviewed with patient and/or family. Voiced understanding. TANA VANG DO Nov 24, 2020 18:18
[2020-11-24 18:27] LABS: BILIRUBIN,URINE NEGATIVE (NEGATIVE); CLARITY,URINE CLOUDY; COLOR,URINE YELLOW; GLUCOSE, URINE (UA) NEGATIVE (NEGATIVE); KETONES,URINE NEGATIVE (NEGATIVE); LEUKOCYTE ESTERASE ,URINE 2+ (NEGATIVE); NITRITE,URINE NEGATIVE (NEGATIVE); PROTEIN,URINE TRACE (NEGATIVE)
[2020-11-24 18:28] LABS: BASOPHILS # (AUTO) 0.1 10^3/uL (0.0-0.1); BASOPHILS % (AUTO) 1 % (0-10); EOSINOPHILS # (AUTO) 0.6 10^3/uL (0.0-0.3); EOSINOPHILS % (AUTO) 3 % (0-10); HEMATOCRIT 39 % (35-52); LYMPHOCYTES # (AUTO) 3.6 10^3/uL (1.0-4.0); LYMPHOCYTES % (AUTO) 19 % (12-44); MEAN CORPUSCULAR HEMOGLOBIN 20 pg (25-34); MEAN CORPUSCULAR HGB CONC 28 g/dL (32-36); MEAN CORPUSCULAR VOLUME 72 fL (80-99); MEAN PLATELET VOLUME 11.6 fL (9.0-12.2); MONOCYTES # (AUTO) 0.9 10^3/uL (0.0-1.0); MONOCYTES % (AUTO) 5 % (0-12); NEUTROPHILS # (AUTO) 13.4 10^3/uL (1.8-7.8); NEUTROPHILS % (AUTO) 72 % (42-75); PLATELET COUNT 663 10^3/uL (130-400); WHITE BLOOD COUNT 18.7 10^3/uL (4.3-11.0)
[2020-11-24 18:38] LABS: ALBUMIN 4.1 GM/DL (3.2-4.5); CHLORIDE 107 MMOL/L (98-107); POTASSIUM 3.7 MMOL/L (3.6-5.0); SODIUM 138 MMOL/L (135-145)
[2020-11-24 18:39] LABS: AMYLASE 46 U/L (25-125); CALCIUM 8.8 MG/DL (8.5-10.1)
[2020-11-24 18:39] LABS: BACTERIA,URINE MODERATE /HPF; WBC,URINE >100 /HPF
[2020-11-24 18:40] LABS: GLUCOSE 100 MG/DL (70-105); TOTAL PROTEIN 8.3 GM/DL (6.4-8.2)
[2020-11-24 18:41] LABS: CARBON DIOXIDE 19 MMOL/L (21-32)
[2020-11-24 18:42] LABS: BILIRUBIN,TOTAL 0.2 MG/DL (0.1-1.0)
[2020-11-24 18:44] LABS: ALKALINE PHOSPHATASE 134 U/L (40-136); CREATININE SERUM 0.69 MG/DL (0.60-1.30); GFR ESTIMATED > 60
[2020-11-24 18:45] LABS: BUN/CREATININE RATIO 14
[2020-11-24 18:46] LABS: MAGNESIUM 1.9 MG/DL (1.6-2.4)
[2020-11-24 18:47] LABS: ALANINE AMINOTRANSFERASE 17 U/L (0-55); LIPASE 17 U/L (8-78)
[2020-11-24] MEDS ORDERED: KETOROLAC 30 MG/ML VIAL IVP STA (18:47)
[2020-11-24 18:49] LABS: EOSINOPHILS % (MANUAL) 4 %; LYMPHOCYTES % (MANUAL) 15 %; MONOCYTES % (MANUAL) 8 %; NEUTROPHILS % (MANUAL) 73 %
[2020-11-24 18:50] LABS: HYPOCHROMASIA SLIGHT; STOMATOCYTES SLIGHT
--- NOTE | 2020-11-24 18:57 | NUR ---
REPORT GIVEN TO
[2020-11-24] MEDS ORDERED: cefTRIAXone FOR IV USE 1,000 MG in WATER (STERILE) FOR INJECTION 10 ML IV ONE (19:00)
--- NOTE | 2020-11-24 19:15 | NUR ---
IN ROOM TO INTRODUCE SELF. EXPLAINED PLAN OF CARE/ CALL LIGHT IN REACH VERBALIZES UNDERSTANDING TO ITS USE. MONITORING MAINTAINED. PT IS GOING TO CT SOON.
--- NOTE | 2020-11-24 19:17 | Diagnostic Imaging Report ---
INDICATION: Abdominal pain Abdominal series performed with a frontal chest radiograph and supine and upright abdominal films. Frontal chest view shows the heart normal in size. Lungs are clear. There is no pneumothorax or pleural fluid. There is no free intraperitoneal air. The abdominal bowel gas pattern is unremarkable. There is a prominent staghorn calculus involving the majority of the left kidney. The right side of the abdomen shows no abnormal calcifications. IMPRESSION: Unremarkable bowel gas pattern with no sign of free air or bowel obstruction or ileus. Prominent Staghorn calculus in the left kidney. Single view of the chest was unremarkable. Dictated by: Dictated on workstation # [id number]
--- NOTE | 2020-11-24 19:44 | Diagnostic Imaging Report ---
PROCEDURE: CT urinary tract, rule out kidney stone. TECHNIQUE: Multiple contiguous axial images were obtained through the abdomen and pelvis without the use of intravenous contrast. Auto Exposure Controls were utilized during the CT exam to meet ALARA standards for radiation dose reduction. INDICATION: Abdominal pain starting yesterday. Nausea and diarrhea x3 days. CORRELATION STUDY: 05/16/2020 FINDINGS: LOWER THORAX: Clear. LIVER: Unremarkable. GALLBLADDER: Present and unremarkable. No bile duct dilatation. SPLEEN: Unremarkable. PANCREAS: Unremarkable. ADRENAL GLANDS: Unremarkable. KIDNEYS: Large staghorn calculus fills the left renal collecting system. Areas of left renal scarring are present. Right kidney unremarkable. No hydronephrosis. ABDOMINAL AORTA: Nonaneurysmal. There are few scattered prominent central retroperitoneal lymph nodes present. GASTROINTESTINAL TRACT: The appendix projects medially and actually courses just to the left midline. The appendix is abnormally thickened up to 49 mm with wall edema and periappendiceal inflammatory change consistent with acute appendicitis. Probable appendicoliths are present in the proximal aspect. URINARY BLADDER: Unremarkable. REPRODUCTIVE: Unremarkable. OSSEOUS STRUCTURES: Mild broad-based disc bulge at L4-L5 level. Transitional anatomy with sacralization of the L5. OTHER: None. IMPRESSION: 1. Findings compatible with acute, uncomplicated appendicitis. 2. Large staghorn calculus of the left kidney. Dictated by: Dictated on workstation # [id number]
[2020-11-24] MEDS ORDERED: metroNIDAZOLE 500MG/100ML IVPB 100 ML IV ONE (20:00)
--- NOTE | 2020-11-24 20:30 | NUR ---
ASSISTED PATIENT IN CALLING FAMILY TO UPDATE SHE WILL BE STAYING IN THE HOSPITAL.
--- NOTE | 2020-11-24 21:07 | NUR ---
ATTEMPTED TO CALL JOEY AT 2108 TO GIVE REPORT UNAVAILABLE AT THIS TIME.
[2020-11-24] MEDS ORDERED: KETOROLAC 30 MG/ML VIAL IVP PRN (22:45)
[2020-11-24] MEDS ORDERED: fentaNYL INJECTION 100 MCG/2 ML AMP IV PRN (22:45)
[2020-11-24] MEDS ORDERED: ONDANSETRON 4 MG/2 ML (SDV) Z0FRAN IV PRN (22:45)
[2020-11-24] MEDS: D5 1/2 NS W/KCL 20 MEQ/L 1,000 ML IV SCH (23:32)
[2020-11-24 23:50] VITALS: BP 98/54
[2020-11-25] VITALS (11 sets, daily range): BP systolic 103–144; BP diastolic 50–89
[2020-11-25] MEDS: D5 1/2 NS W/KCL 20 MEQ/L 1,000 ML IV SCH ×3 (04:32→15:05)
[2020-11-25 06:02] LABS: BASOPHILS # (AUTO) 0.1 10^3/uL (0.0-0.1); BASOPHILS % (AUTO) 1 % (0-10); EOSINOPHILS # (AUTO) 0.7 10^3/uL (0.0-0.3); EOSINOPHILS % (AUTO) 5 % (0-10); HEMATOCRIT 35 % (35-52); HEMOGLOBIN 9.7 g/dL (11.5-16.0); LYMPHOCYTES # (AUTO) 3.4 10^3/uL (1.0-4.0); LYMPHOCYTES % (AUTO) 23 % (12-44); MEAN CORPUSCULAR HEMOGLOBIN 20 pg (25-34); MEAN CORPUSCULAR HGB CONC 28 g/dL (32-36); MEAN CORPUSCULAR VOLUME 73 fL (80-99); MEAN PLATELET VOLUME 12.2 fL (9.0-12.2); MONOCYTES % (AUTO) 6 % (0-12); NEUTROPHILS # (AUTO) 9.8 10^3/uL (1.8-7.8); NEUTROPHILS % (AUTO) 66 % (42-75); PLATELET COUNT 519 10^3/uL (130-400); WHITE BLOOD COUNT 14.9 10^3/uL (4.3-11.0)
[2020-11-25 06:18] LABS: ALBUMIN 3.3 GM/DL (3.2-4.5); CHLORIDE 109 MMOL/L (98-107); POTASSIUM 4.2 MMOL/L (3.6-5.0); SODIUM 138 MMOL/L (135-145)
[2020-11-25 06:19] LABS: CALCIUM 8.2 MG/DL (8.5-10.1)
[2020-11-25 06:20] LABS: GLUCOSE 110 MG/DL (70-105); TOTAL PROTEIN 6.7 GM/DL (6.4-8.2)
[2020-11-25 06:22] LABS: BILIRUBIN,TOTAL 0.2 MG/DL (0.1-1.0); CARBON DIOXIDE 18 MMOL/L (21-32)
[2020-11-25 06:24] LABS: ALKALINE PHOSPHATASE 107 U/L (40-136); CREATININE SERUM 0.61 MG/DL (0.60-1.30); GFR ESTIMATED > 60
[2020-11-25 06:25] LABS: BUN/CREATININE RATIO 13
[2020-11-25] MEDS ORDERED: SEVOFLURANE (ULTANE) 15 ML INHAL SOLN ONE ×5 (06:26→09:43)
[2020-11-25] MEDS ORDERED: fentaNYL INJECTION 100 MCG/2 ML AMP ONE (06:26)
[2020-11-25] MEDS ORDERED: proPOfol 200 MG/20 ML (DIPRIVAN) VIAL IV ONE ×2 (06:26→08:44)
[2020-11-25] MEDS ORDERED: ROCURONIUM 10 MG/ML 5 ML SYRINGE IV ONE (06:26)
[2020-11-25] MEDS ORDERED: LIDOCAINE PF 2% 5 ML (XYLOCAINE) VIAL ONE (06:26)
[2020-11-25] MEDS ORDERED: ONDANSETRON 4 MG/2 ML (SDV) Z0FRAN ONE (06:26)
[2020-11-25 06:27] LABS: ALANINE AMINOTRANSFERASE 14 U/L (0-55)
[2020-11-25] MEDS ORDERED: MIDAZOLAM 2 MG/2 ML (VERSED) VIAL ONE (06:27)
--- NOTE | 2020-11-25 06:49 | History & Physical-Surgical ---
History of Present Illness History of Present Illness Reason for visit/HPI CC: abdominal pain. periumbilical patient is a 30 year old female 2 days ago started having sharp pain 8/10 in middle of abdomen and then moved lower abdomen. Pain medication has helped pain. Movement makes worse. Not having any nausea or emesis. Patient had ct scan that is consistent with acute appendicitis and has left staghorn calculus. Denies fever sweats chills shortness of breath or chest pain. Date of Admission Nov 24, 2020 at 19:50 Date Seen by a Provider: Nov 25, 2020 Time Seen by a Provider: 06:51 I consulted on this patient on 11/25/20 06:43 Attending Physician Renetta Mcintyre DO Admitting Physician No,Local Physician Consult Allergies and Home Medications Allergies Coded Allergies: No Known Drug Allergies (Unverified , 10/23/20) Home Medications Ibuprofen 800 Mg Tablet, 800 MG PO Q6H PRN for PAIN Prescribed by: VIVIANE BELLA on 10/23/20 1424 Patient Home Medication List Home Medication List Reviewed: Yes Past Ejnjeac-Xkmuam-Bhtmqn Hx Patient Social History Drug of Choice: DENIES Smoking Status: Never a Smoker 2nd Hand Smoke Exposure: No Recent Hopitalizations: No Alcohol Use?: No Have you traveled recently?: No Seasonal Allergies Seasonal Allergies: No Surgeries History of Surgeries: Yes ( X 2; HYSTEROSCOPY WITH D&C 10/23/20) Surgeries: Section Respiratory History of Respiratory Disorde: No Cardiovascular History of Cardiac Disorders: Yes Cardiac Disorders: Hypertension Neurological History of Neurological Disord: No Reproductive System : No Hx Reproductive Disorders: Yes (DUB/MENORRHAGIA) Female Reproductive Disorders: Menstrual Problems, Ovarian Cyst Genitourinary History of Genitourinary Disor: Yes Genitourinary Disorders: Bladder Infection Gastrointestinal History of Gastrointestinal Di: No Musculoskeletal History of Musculoskeletal Dis: No Endocrine History of Endocrine Disorders: No HEENT History of HEENT Disorders: No Cancer History of Cancer: No Psychosocial History of Psychiatric Problem: No Integumentary History of Skin or Integumenta: No Blood Transfusions History of Blood Disorders: Yes (ANEMIA-DUE TO MENORRHAGIA) Reviewed Nursing Assessment Reviewed/Agree w Nursing PMH: Yes Family Medical History Significant Family History: No Pertinent Family Hx Review of Systems Constitutional: No chills, No diaphoresis, No fever EENTM: No blurred vision, No double vision Respiratory: No cough, No dyspnea on exertion, No short of breath Cardiovascular: No chest pain, No edema Gastrointestinal: RLQ, abdominal pain (RLQ) Genitourinary: No decreased output, No discharge : No Musculoskeletal: No back pain, No gout, No joint pain Skin: No change in color, No change in hair/nails Psychiatric/Neurological: Denies Anxiety, Denies Depressed, Denies Emotional Problems All Other Systems Reviewed Negative Unless Noted: Yes (Negative excepted noted.) Physical Exam Vital Signs Vital Signs - First Documented 11/24/20 11/24/20 17:50 21:40 Temp 37.0 Pulse 119 Resp 16 B/P (MAP) 148/95 (112) Pulse Ox 100 O2 Delivery Room Air Capillary Refill : Less Than 3 Seconds Height, Weight, BMI Height: '" Weight: lbs. oz. 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 II-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 Norm as Tested Skin: Normal Color, Warm/Dry Lymphatic: No Adenopathy Data Review Labs Laboratory Tests 11/24/20 18:18: Urine Color YELLOW, Urine Clarity CLOUDY, Urine pH 6.0, Urine Specific [place] 1.020, Urine Protein TRACEH, Urine Glucose (UA) NEGATIVE, Urine Ketones NEGATIVE, Urine Nitrite NEGATIVE, Urine Bilirubin NEGATIVE, Urine Urobilinogen 0.2, Urine Leukocyte Esterase 2+H, Urine RBC (Auto) 1+H, Urine RBC NONE, Urine WBC >100H, Urine Squamous Epithelial Cells 10-25H, Urine Crystals NONE, Urine Bacteria MODERATEH, Urine Casts NONE, Urine Mucus NEGATIVE, Urine Culture Indicated YES 11/24/20 18:20: White Blood Count 18.7H, Red Blood Count 5.43H, Hemoglobin 11.0L, Hematocrit 39, Mean Corpuscular Volume 72L, Mean Corpuscular Hemoglobin 20L, Mean Corpuscular Hemoglobin Concent 28L, Red Cell Distribution Width 18.4H, Platelet Count 663H, Mean Platelet Volume 11.6, Immature Granulocyte % (Auto) 0, Neutrophils (%) (Auto) 72, Lymphocytes (%) (Auto) 19, Monocytes (%) (Auto) 5, Eosinophils (%) (Auto) 3, Basophils (%) (Auto) 1, Neutrophils # (Auto) 13.4H, Lymphocytes # (Auto) 3.6, Monocytes # (Auto) 0.9, Eosinophils # (Auto) 0.6H, Basophils # (Auto) 0.1, Immature Granulocyte # (Auto) 0.1, Neutrophils % (Manual) 73, Lymphocytes % (Manual) 15, Monocytes % (Manual) 8, Eosinophils % (Manual) 4, Hypochromasia SLIGHT, Stomatocytes SLIGHT, Sodium Level 138, Potassium Level 3.7, Chloride Level 107, Carbon Dioxide Level 19L, Anion Gap 12, Blood Urea Nitrogen 10, Creatinine 0.69, Estimat Glomerular Filtration Rate > 60, BUN/Creatinine Ratio 14, Glucose Level 100, Calcium Level 8.8, Corrected Calcium 8.7, Magnesium Level 1.9, Total Bilirubin 0.2, Aspartate Amino Transf (AST/SGOT) 15, Alanine Aminotransferase (ALT/SGPT) 17, Alkaline Phosphatase 134, Total Protein 8.3H, Albumin 4.1, Amylase Level 46, Lipase 17 11/25/20 05:25: White Blood Count 14.9H, Red Blood Count 4.76, Hemoglobin 9.7L, Hematocrit 35, Mean Corpuscular Volume 73L, Mean Corpuscular Hemoglobin 20L, Mean Corpuscular Hemoglobin Concent 28L, Red Cell Distribution Width 17.7H, Platelet Count 519H, Mean Platelet Volume 12.2, Immature Granulocyte % (Auto) 0, Neutrophils (%) (Auto) 66, Lymphocytes (%) (Auto) 23, Monocytes (%) (Auto) 6, Eosinophils (%) (Auto) 5, Basophils (%) (Auto) 1, Neutrophils # (Auto) 9.8H, Lymphocytes # (Auto) 3.4, Monocytes # (Auto) 1.0, Eosinophils # (Auto) 0.7H, Basophils # (Auto) 0.1, Immature Granulocyte # (Auto) 0.1, Sodium Level 138, Potassium Level 4.2, Chloride Level 109H, Carbon Dioxide Level 18L, Anion Gap 11, Blood Urea Nitrogen 8, Creatinine 0.61, Estimat Glomerular Filtration Rate > 60, BUN/Creatinine Ratio 13, Glucose Level 110H, Calcium Level 8.2L, Corrected Calcium 8.8, Total Bilirubin 0.2, Aspartate Amino Transf (AST/SGOT) 22, Alanine Aminotransferase (ALT/SGPT) 14, Alkaline Phosphatase 107, Total Protein 6.7, Albumin 3.3 11/25/20 05:45: Coronavirus 2019 ([facility]) Negative Assessment/Plan Assessment/Plan Admission Diagonsis right lower quadrant abdominal pain acute appendicitis staghorn calclus left Admission Status: Observation Assessment/Plan right lower quadrant abdominal pain acute appendicitis staghorn calclus left patient with acute appendicitis understands risks and benefits of lap appendectomy all other indicated procedures and wishes to proceed. will need to follow up with pcp reguarding staghorn calculus and consider urology consultation. to or RENETTA MCINTYRE DO Nov 25, 2020 06:49
[2020-11-25] MEDS ORDERED: LIDOCAINE/EPI 1%-1:100,000 (XYLOCAINE) 50 ML ONE (07:42)
[2020-11-25] MEDS ORDERED: ceFAZolin INJECTION 2,000 MG ONE (07:56)
[2020-11-25] MEDS ORDERED: GLYCOPYRROLATE 0.2 MG/ML (ROBINUL) 2 ML VIAL ONE (08:44)
[2020-11-25] MEDS ORDERED: NEOSTIGMINE 3 MG/3 ML VIAL ONE (08:44)
[2020-11-25] MEDS ORDERED: metroNIDAZOLE 500 MG/100 ML IVPB (PRE-MIX) IV SCH (09:00)
[2020-11-25] MEDS ORDERED: HYDROmorphone 2 MG/ML VIAL (DILAUDID) ONE (09:18)
--- NOTE | 2020-11-25 09:29 | Progress Note-Post Operative ---
Post-Operative Progess Note Surgeon (s)/Claims Representative (s) Surgeon RENETTA YOUNG DO Claims Representative: na Pre-Operative Diagnosis acute appendicitis Post-Operative Diagnosis same Procedure & Operative Findings Date of Procedure 11/25/20 Procedure Performed/Findings PROCEDURE: Laparoscopic appendectomy. COMPLICATIONS: None. INDICATIONS: The patient is a 30 year old female who has been having right lower quadrant abdominal pain. Patient's exam consistent with appendicitis. I discussed risk and benefits of laparoscopic appendectomy and all indicated procedures with the possibility being a normal appendix. The patient understands the risks and benefits and wishes to proceed. Consent was signed on the chart. DESCRIPTION OF PROCEDURE: The patient was taken to the operating suite, prepped and draped in a sterile fashion. Timeout was performed. Local anesthetic was infiltrated just above the umbilicus and 11-blade scalpel was used to make a skin incision. Cautery was used to dissect down to the fascia and scored. Kochers were used to grasp and elevate it and the abdomen was then entered. A 0 Vicryl was placed in a [id number] fashion for closure at the end of the case. The balloon trocar was inserted into the abdomen and pneumoperitoneum was achieved. Under direct visualization of the laparoscope, a 5 mm trocar was placed in the suprapubic region and a 5 mm trocar was placed in the left lower quadrant. Appendix was located, Inflamed appendix, omentum adhered to abdominal wall. Portion of this was taken down with ligasure for port and visualization. The base of the appendix was di ssected around. Once at the base an Endo-SEBAS 2.5 stapler was then fired across the base of the appendix. The mesoappendix was then divided. It was then placed in an Endobag and removed through the 12 mm trocar site. The abdomen was then irrigated and suctioned. No other pathology noted. The abdomen was then desufflated and the trocars were removed. The 0 Vicryl placed at the beginning of the case was then tied closing the 12 mm fascial defect. The skin was then closed using 4-0 Monocryl in a subcuticular fashion. The abdomen was then washed and dried and Skin Affix was placed over the incisions. The patient tolerated the procedure well without any complications and was taken to the recovery room in stable condition. Anesthesia Type general Estimated Blood Loss Estimated blood loss (mL): minimal Specimens/Packing Specimens Removed appendix RENETTA YOUNG DO Nov 25, 2020 09:29
[2020-11-25] MEDS ORDERED: HYDR-4226 PO (09:32)
[2020-11-25] MEDS ORDERED: DOCU-143 PO (09:32)
--- NOTE | 2020-11-25 09:33 | Discharge Inst-Simple/Standard ---
Discharge Inst-Standard Discharge Medications New, Converted or Re-Newed RX: RX on Chart Patient Instructions/Follow Up Plan of Care/Instructions/FU: 2-3 weeks Miguelina Activity as Tolerated: No Discharge Diet: Regular Diet Other Inst to Patient Follow up Appt: Make appointment for 2-3 weeks. Instructions: No lifting greater than 10 pounds. No strenuous activity. May shower in 24 hours, no tub bath or soaking. Use incentive spirometer at home as directed. No Smoking Skin/Wound Care: You have special glue over your incision that will fall off on it's own. Symptoms to Report: Appetite Changes, Extremity Discoloration, Numbness/Tingling, Swelling Increased, Bleeding Excessive, Eyesight Changes, Pain Increased, Urine Color Change, Constipation(Persistent), Fever over 101 degree F, Pain/Pressure in chest, Urinating Difficulty, Cough Up/Vomit Blood, Heart Beat Irreg/Pounding, Pain/Pressure in jaw, Vaginal Bleeding Increase, Cramps in feet or legs, Lightheadedness, Pain/Pressure in shoulder, Diarrhea(Persistent), Memory Changes Suddenly, Questions/Concerns, Weight gain consecutive days, Dizziness/Fainting, Nausea/Vomiting, Shortness of Breath, Weight gain over 2 pounds If questions or concerns contact your physician Or seek help at emergency department. RENETTA YOUNG DO Nov 25, 2020 09:33
[2020-11-25] MEDS ORDERED: HYDROmorphone 2 MG/ML VIAL (DILAUDID) IV ONE (09:45)
[2020-11-25] MEDS ORDERED: ONDANSETRON 4 MG/2 ML (SDV) Z0FRAN IVP PRN (09:45)
[2020-11-25] MEDS ORDERED: morphine INJ 10 MG/ML 1ML (SYR OR VIAL) IVP ONE (09:45)
--- NOTE | 2020-11-25 13:35 | NUR ---
"RD ASSESSMENT PMHx: HTN; PT INTERACTION: Pt was awake and pleasant during dietary consult for MST score. Note pt is a American speaker, and translation was provided through [employer]. Pt states current appetite is poor. Note no meals have been recorded, per chart review. Pt states following a regular diet at home, and has some issues with swallowing food. Pt states some recent issues with nausea, vomiting, constipation, and diarrhea, and that her last BM was 11/25. Note pt not currently on bowel regimen per chart review. Pt states recent wt gain, but was unsure of amount/timeframe. Note recent 26# wt gain x6mon, per chart review. Est. kcal needs: 5966-6759 kcal | 15-18 kcal/kg Est. Pro needs: 78-98 g Pro | 0.8-1.0 g Pro/kg PES STATEMENT: Inadequate oral intake (NI-2.1) related to loss of appetite, nausea, vomiting, constipation, and diarrhea, as evidenced by pt interview. INTERVENTION: Continue with current diet order of Regular diet. Pt may benefit from nutrition supplementation if PO intake declines. Will continue to follow and reassess as pt needs, intake, and status change. Joseph QUINTANILLA, MS RD LD [phone] cell"
--- NOTE | 2020-11-25 14:33 | Anesthesia-General Post-Op ---
General Patient Condition Mental Status/LOC: Same as Preop Cardiovascular: Satisfactory Nausea/Vomiting: Absent Respiratory: Satisfactory Pain: Controlled Complications: Absent Post Op Complications Complications None Follow Up Care/Instructions Patient Instructions None needed. Anesthesia/Patient Condition Patient Condition Patient is doing well, no complaints, stable vital signs, no apparent adverse anesthesia problems. RACHID KEY DO Nov 25, 2020 14:33
[2020-11-25] MEDS ORDERED: cefTRIAXone 1,000 MG/SWFI 10 ML IV PUSH IV SCH ×2 (21:00)
== END 2020-11-25 16:01 | disposition home or self-care (01) ==
LOC: EDUNIT# 17:34 → ER 17:38 → SDC 19:50 → 4TH 19:50 → UNDOADMIN 19:50 → 4TH 19:50 → UNDODISIN 11-25 16:01 → SDC 11-25 16:01 → 4TH 11-25 16:34
PROVIDERS: ATTEND Surgery
DX: K35.80 Unspecified acute appendicitis (principal); N39.0 Urinary tract infection, site not specified; N20.0 Calculus of kidney; I10 Essential (primary) hypertension; Z79.899 Other long term (current) drug therapy; Z20.828 Contact with and (suspected) exposure to other viral communicable diseases
CPT/HCPCS: 44970; 74022; 74176; 80053 ×2; 81000; 82150; 83690; 83735; 84703; 85007; 85025; 85027; 87077; 87081; 87088; 87186; 93041; 99284; U0002; 36415; 87635; 88304

== ENCOUNTER 2021-05-13 05:54 | Emergency (ER) | payer SELFPAY ==
[~2021-05-13] VITALS: Ht 165.1 cm; Wt 75.0 kg
[~2021-05-13 05:54] MED LIST changes: +DOCU-143 PO; +HYDR-4226 PO
[2021-05-13] MEDS ORDERED: morphine INJ 10 MG/ML 1ML (SYR OR VIAL) IM STA (06:14)
[2021-05-13] MEDS ORDERED: KETOROLAC 60 MG/2 ML VIAL IM STA (06:14)
--- NOTE | 2021-05-13 06:26 | ED Lower Extremity ---
General Chief Complaint: Lower Extremity Stated Complaint: LEFT KNEE PAIN Nursing Triage Note: Pt arrival to ER via wheelchair with complaint of left knee pain from standing fall. Daughter translates that mother was awaken by a rodent inside the residence and when she jumped up out of bed, she fell landing on knee. Pain at a 10/10. Source: patient, family Exam Limitations: no limitations History of Present Illness Date Seen by Provider: May 13, 2021 Time Seen by Provider: 06:07 Initial Comments Here with complaint of left knee pain. Apparently she was startled awake by a rodent and jumped out of bed. She twisted her tripped and landed on her left knee. Complains of severe left knee pain. Denies other injuries or concerns Onset: just prior to arrival (Approximately an hour ago) Severity: moderate, severe Method of Injury: fell Modifying Factors: Improves With Immobilization; Worse With Movement Allergies and Home Medications Allergies Coded Allergies: No Known Drug Allergies (Unverified , 10/23/20) Home Medications Docusate Sodium 100 Mg Capsule, 100 MG PO BID Prescribed by: RENETTA YOUNG on 11/25/20 0932 Hydrocodone Bit/Acetaminophen 1 Tab Tab, 1 TAB PO Q6H Prescribed by: DIONE MORRISON on 05/13/21 0718 Hydrocodone/Acetaminophen 1 Each Tablet, 1 TAB PO Q4-6HR Prescribed by: RENETTA YOUNG on 11/25/20 0932 Patient Home Medication List Home Medication List Reviewed: Yes Review of Systems Constitutional: see HPI; No chills, No fever Respiratory: no symptoms reported Cardiovascular: no symptoms reported Musculoskeletal: see HPI, joint swelling Psychiatric/Neurological: Denies Numbness, Denies Paresthesia Past Ohiulud-Bdknad-Xdkmcn Hx Patient Social History Tobacco Use?: No Use of E-Cig and/or Vaping dev: No Substance use?: No Alcohol Use?: No Pt feels they are or have been: No Seasonal Allergies Seasonal Allergies: No Past Medical History Surgeries: Yes ( X 2; HYSTEROSCOPY WITH D&C 10/23/20) Appendectomy, Section Respiratory: No Currently Using CPAP: No Currently Using BIPAP: No Cardiac: Yes Hypertension Neurological: No Reproductive Disorders: Yes (DUB/MENORRHAGIA) Female Reproductive Disorders: Menstrual Problems, Ovarian Cyst Genitourinary: Yes Bladder Infection Gastrointestinal: No Musculoskeletal: No Endocrine: No HEENT: No Cancer: No Psychosocial: No Integumentary: No Blood Disorders: Yes (ANEMIA-DUE TO MENORRHAGIA) Family Medical History Reviewed Nursing Family Hx No Pertinent Family Hx ADDITIONAL PMH: -ADMITTED 05/2020 FOR SEVERE ANEMIA DUE TO MENORRHAGIA--4 UNITS OF BLOOD TRANSFUSED Physical Exam Vital Signs Vital Signs - First Documented 05/13/21 06:04 Temp 37.1 Pulse 121 Resp 20 B/P (MAP) 149/70 (96) Pulse Ox 98 O2 Delivery Room Air Capillary Refill : Height, Weight, BMI Height: '" Weight: lbs. oz. kg; 27.00 BMI Method: General Appearance: WD/WN, moderate distress Cardiovascular: no murmur, tachycardia Respiratory: lungs clear, normal breath sounds Knees: right knee non-tender, right knee normal inspection, right knee normal range of motion, right knee no evidence of injury; left knee joint effusion, left knee soft tissue tenderness, left knee swelling, left knee other (Tender to the proximal tibia and medial and lateral anterior aspect of the knee. Patella in appropriate position. Pain with any range of motion of the knee.) Ankles: bilateral ankle non-tender, bilateral ankle normal inspection, bilateral ankle normal range of motion, bilateral ankle no evidence of injury Neurologic/Psychiatric: alert, oriented x 3 Skin: normal color, warm/dry Progress/Results/Core Measures Results/Orders My Orders Orders - DIONE MORRISON MD Knee, Left, 3 Views (05/13/21 06:14) Ketorolac Injection (Toradol Injection) (05/13/21 06:14) Morphine Injection (Morphine Injection (05/13/21 06:14) Vital Signs/I&O 05/13/21 06:04 Temp 37.1 Pulse 121 Resp 20 B/P (MAP) 149/70 (96) Pulse Ox 98 O2 Delivery Room Air Blood Pressure Mean: 96 Progress Progress Note : Progress Note Seen and evaluated. Morphine 8 mg IM and Toradol 60 mg IM ordered. X-ray left knee ordered. Monitor patient. 0740: No acute fractures. Knee immobilizer and ice pack given. Hydrocodone 5 1 tab p.o. given now. Discharge instructions given by me via cytotechnologist/cytology supervisor line. Patient verbalized understanding of instructions and agreement with plan. Diagnostic Imaging Diagonstic Imaging: Xray Plain Films/CT/US/NM/MRI: knee Comments NAME: SHAHRIAR NINA [facility] REC#: [id number] PT STATUS: REG ER : 1990 PHYSICIAN: DIONE MORRISON MD ADMIT DATE: 05/13/21/ER Draft Date of Exam:05/13/21 KNEE, LEFT, 3 VIEWS Indication: Left knee pain. Fall. FINDINGS: 3 views. Nonweightbearing views. No fractures or dislocations. Joint spaces are well-maintained. Articulating surfaces are smooth. IMPRESSION: Normal left knee. Dictated on workstation # [id number] Dict: 05/13/21708 Trans: 05/13/21711 [facility] [id number] Interpreted by: ALEX MILLS MD Electronically signed by: Departure Impression Primary Impression: Internal derangement of left knee Disposition: HOME, SELF-CARE Condition: Stable Departure-Patient Inst. Decision time for Depature: 07:15 Referrals: NO,LOCAL PHYSICIAN (PCP/Family) Primary Care Physician Patient Instructions: Internal Derangement of the Knee (DC) Add. Discharge Instructions: All discharge instructions reviewed with patient and/or family. Voiced understanding. You may take ibuprofen 600 mg every 8 hours as needed for pain. You may use the knee immobilizer as needed over the next few days while moving about. You may use ice packs to area of concern 20 minutes/h as needed follow-up with your doctor for recheck and further evaluation. You may need further imaging such as an MRI to evaluate internal injuries that are not the bone (ligaments). You can discuss this with your doctor or follow-up with orthopedist of your choice. Return for worse pain, swelling, weakness or other concerns as needed. Scripts Hydrocodone Bit/Acetaminophen (HYDROcodone/APAP 5 MG/325 MG TAB) 1 Tab Tab 1 TAB PO Q6H for Pain, #8 TAB 0 Refills Prov: DIONE MORRISON MD 05/13/21 DIONE MORRISON MD May 13, 2021 06:26
--- NOTE | 2021-05-13 07:12 | Diagnostic Imaging Report ---
Indication: Left knee pain. Fall. FINDINGS: 3 views. Nonweightbearing views. No fractures or dislocations. Joint spaces are well-maintained. Articulating surfaces are smooth. IMPRESSION: Normal left knee. Dictated by: Dictated on workstation # [id number]
[2021-05-13] MEDS ORDERED: ACHD5005 PO (07:17)
[2021-05-13 07:26] VITALS: BP 149/76
[2021-05-13] MEDS ORDERED: HYDROcodone/APAP 5 MG/325 MG (LORTAB) TAB PO ONE (07:45)
== END 2021-05-13 07:26 | disposition home or self-care (01) ==
LOC: EDUNIT# 05:54 → ER 05:57
DX: M23.92 Unspecified internal derangement of left knee (principal); I10 Essential (primary) hypertension
CPT/HCPCS: 73562; 99282; L1830